=== PATIENT | female | born 1940 | race Caucasian/White ===

== ENCOUNTER 2021-11-29 18:24 | Emergency (ER) | payer MEDICARE, OTHER ==
[~2021-11-29] VITALS: Ht 167.6 cm; Wt 99.8 kg
[~2021-11-29 18:24] MED LIST: ADULT LOW DOSE81 MG PO; AMLODIPINE BESYL5 MG PO; CARDIZEM CD240 MG PO; CEFTRIAXONE2 G2 IV; CIPROFLOXACIN500 MG PO; CLEOCIN HCL300 MG PO; CLINDAMYCIN HC300 MG PO; DILTIAZEM 24HR240 M1 PO; ELIQUIS5 MG PO; LEVAQUIN750 MG PO; LEVOTHYROXINE100 MCG PO; LEVOTHYROXINE150 MCG PO; LOPRESSOR50 MG PO; LOSARTAN POTAS100 MG PO; LOVASTATIN20 MG PO; METOPROLOL SUC200 MG PO; METOPROLOL TART50 MG PO; NORCO 5-325 TA1 EACH PO; TOPROL XL100 MG PO; TOPROL XL50 MG PO; VANQUISH CAPLE1 EACH PO; VITAMIN B-122000 MC1 PO; VITAMIN D3400 UNI1 PO
[2021-11-29] MEDS ORDERED: WARFARIN SODIUM5 MG PO (18:58)
[2021-11-29] MEDS ORDERED: CEPHALEXIN500 MG PO (21:04)
== END 2021-11-29 21:39 | disposition home or self-care (01) ==
LOC: ED 18:24
DX: L03.115 Cellulitis of right lower limb (principal); I87.2 Venous insufficiency (chronic) (peripheral); I10 Essential (primary) hypertension
CPT/HCPCS: 36415; 80053; 85025; 85610; 96365; 99283-25; J0696

== ENCOUNTER 2021-12-19 13:43 | Inpatient (IN) | payer MEDICARE, OTHER ==
[~2021-12-19] VITALS: Ht 167.6 cm; Wt 102.8 kg
[~2021-12-19 13:43] MED LIST changes: +CEPHALEXIN500 MG PO; +WARFARIN SODIUM5 MG PO
--- OUTSIDE RECORDS SUMMARY | 2021-12-19 13:50 | XMS ---
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 EFan VISIT COUNT (12 MO.) 2 [facility] TOTAL 2 NOTE: Visits indicate total known visits. ED/C VISIT TRACKING (12 MO.) 12/19/2021 13:[address] [facility] [place] TYPE: Emergency COMPLAINT: - SWELLING/BODY PART 11/29/2021 18:[address] [facility] TYPE: Emergency COMPLAINT: - LT FOOT PAIN DIAGNOSES: - Cellulitis of right lower limb - Essential (primary) hypertension - Rash and other nonspecific skin eruption - Venous insufficiency (chronic) (peripheral) INPATIENT VISIT TRACKING (12 MO.) No inpatient visits to display in this time frame [email or web address]
[2021-12-19] MEDS ORDERED: CEPHALEXIN500 M1 PO (14:27)
[2021-12-20] MEDS ORDERED: WARFARIN SODIUM1 MG PO (07:39)
[2021-12-20] MEDS ORDERED: FUROSEMIDE20 MG PO (07:41)
[2021-12-20] MEDS ORDERED: POTASSIUM CHLO10 ME1 PO (07:41)
[2021-12-20] MEDS ORDERED: LEVOTHYROXINE137 MCG PO (07:42)
[2021-12-20] MEDS ORDERED: ATORVASTATIN CA20 MG PO (07:42)
[2021-12-22] MEDS ORDERED: METOPROLOL SUC200 MG PO (14:09)
[2021-12-22] MEDS ORDERED: DILTIAZEM 24HR240 M1 PO (14:10)
[2021-12-22] MEDS ORDERED: CLINDAMYCIN HC300 MG PO (14:11)
== END 2021-12-22 15:25 | disposition home or self-care (01) | DRG 603 ==
LOC: ED 13:43 → MS 16:14
PROVIDERS: ADMIT Internal Medicine; ATTEND Internal Medicine
DX: L03.116 Cellulitis of left lower limb (principal); I48.20 Chronic atrial fibrillation, unspecified; E78.00 Pure hypercholesterolemia, unspecified; E03.9 Hypothyroidism, unspecified; T78.40XA Allergy, unspecified, initial encounter; T36.1X5A Adverse effect of cephalosporins and other beta-lactam antibiotics, initial encounter; I10 Essential (primary) hypertension; Z98.890 Other specified postprocedural states; Z79.899 Other long term (current) drug therapy; Z79.2 Long term (current) use of antibiotics; Z79.01 Long term (current) use of anticoagulants; Z20.822 Contact with and (suspected) exposure to COVID-19
CPT/HCPCS: 36415; 80048; 80076; 85025; 85610; 87502; 96374; 96375; 97162; 97165; 99284-25; A9270; J0690; J3370; J7060; J7121; U0003

== ENCOUNTER 2021-12-28 10:36 | Emergency (ER) | payer OTHER, MEDICARE ==
[~2021-12-28] VITALS: Ht 167.6 cm; Wt 105.0 kg
[~2021-12-28 10:36] MED LIST changes: +ATORVASTATIN CA20 MG PO; +CEPHALEXIN500 M1 PO; +FUROSEMIDE20 MG PO; +LEVOTHYROXINE137 MCG PO; +POTASSIUM CHLO10 ME1 PO; +WARFARIN SODIUM1 MG PO
--- OUTSIDE RECORDS SUMMARY | 2021-12-28 10:40 | XMS ---
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 Joesph VISIT COUNT (12 MO.) 4 [facility] TOTAL 4 NOTE: Visits indicate total known visits. ED/C VISIT TRACKING (12 MO.) 12/28/2021 10:36 [facility] TYPE: Emergency COMPLAINT: - FALL 12/25/2021 02:59 [facility] TYPE: Emergency COMPLAINT: - FALL DIAGNOSES: - Essential (primary) hypertension - Allergy status to other antibiotic agents - Other usp (current) drug therapy - Unspecified fall, initial encounter - residential (current) use of anticoagulants - Laceration without foreign body of other part of head, initial encounter 12/19/2021 13:43 [facility] [place] TYPE: Emergency COMPLAINT: - SWELLING/BODY PART 11/29/2021 18:25 [facility] TYPE: Emergency COMPLAINT: - LT FOOT PAIN DIAGNOSES: - Cellulitis of right lower limb - Essential (primary) hypertension - Rash and other nonspecific skin eruption - Venous insufficiency (chronic) (peripheral) INPATIENT VISIT TRACKING (12 MO.) 12/19/2021 16:14 [facility] [place] TYPE: Medical Surgical COMPLAINT: - ACUTE LEFT LOWER EXTREMITY SEVERE CELLULITIS DIAGNOSES: - Adverse effect of cephalosporins and other beta-lactam antibiotics, initial encounter - residential (current) use of antibiotics - Elevated white blood cell count, unspecified - Allergy, unspecified, initial encounter - Contact with and (suspected) exposure to COVID-19 - Chronic atrial fibrillation, unspecified - Other technical engineer (current) drug therapy - Chronic atrial fibrillation, unspecified - Other specified postprocedural states - Hypothyroidism, unspecified - Adverse effect of cephalosporins and other beta-lactam antibiotics, initial encounter - residential (current) use of anticoagulants - Hypothyroidism, unspecified - Pure hypercholesterolemia, unspecified - Other specified postprocedural states - Contact with and (suspected) exposure to COVID-19 - communications department head (current) use of anticoagulants - Pure hypercholesterolemia, unspecified - Essential (primary) hypertension - Cellulitis of left lower limb - communications department head (current) use of antibiotics - Other technical engineer (current) drug therapy - Essential (primary) hypertension [email or web address]
--- NOTE | 2021-12-28 13:12 | EKG ---
[facility] [address] [facility] [facility] [place] [address] Signed Atrial fibrillation Abnormal ECG When compared with ECG of 28-MAR-2016 10:56, Vent. rate has decreased BY 62 BPM Nonspecific T wave abnormality no longer evident in Inferior leads Confirmed by AILYN SHAIKH MD ([id number]) on 12/28/2021 1:11:55 PM Electronically Signed By: AILYN SHAIKH MD 12/28/21 1312 PATIENT NAME: DAREK WITT Electrocardiogram DATE OF : 36 PHYSICIAN: AILYN SHAIKH MD REPORT #: [id number] REPORT IS CONFIDENTIAL AND NOT TO BE RELEASED WITHOUT AUTHORIZATION
== END 2021-12-28 14:58 | disposition home or self-care (01) ==
LOC: ED 10:36
DX: S00.83XA Contusion of other part of head, initial encounter (principal); W19.XXXA Unspecified fall, initial encounter; Z88.8 Allergy status to other drugs, medicaments and biological substances; Z79.01 Long term (current) use of anticoagulants
CPT/HCPCS: 36415; 70450; 70486; 72125; 73560; 80048; 83605; 85025; 85610; 87040; 93005; 93010; 99284-25

== ENCOUNTER 2022-01-25 15:29 | Inpatient (IN) | payer MEDICARE, OTHER ==
[~2022-01-25] VITALS: Ht 167.6 cm; Wt 88.0 kg
--- OUTSIDE RECORDS SUMMARY | 2022-01-25 15:36 | XMS ---
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 - 2 Visits in 30 Days CARE PROVIDERS Wanda GarrisonP-C Nurse Practitioner: Family Current PHONE: [phone] Rolo has no Care Guidelines for this patient. Joesph VISIT COUNT (12 MO.) [address] [place] [address] TOTAL 5 NOTE: Visits indicate total known visits. ED/C VISIT TRACKING (12 MO.) 01/25/2022 15:29 [facility] TYPE: Emergency COMPLAINT: - MULTIPLE COMPLAINTS 12/28/2021 10:36 [facility] TYPE: Emergency COMPLAINT: - FALL DIAGNOSES: - Contusion of other part of head, initial encounter - Allergy status to other drugs, medicaments and biological substances - Unspecified atrial fibrillation - Unspecified fall, initial encounter - skilled nursing (current) use of anticoagulants 12/25/2021 02:59 [facility] [place] TYPE: Emergency COMPLAINT: - FALL DIAGNOSES: - Other exterminator helper (current) drug therapy - Essential (primary) hypertension - Laceration without foreign body of other part of head, initial encounter - Unspecified fall, initial encounter - Allergy status to other antibiotic agents - parts counterman (current) use of anticoagulants 12/19/2021 13:43 [facility] TYPE: Emergency COMPLAINT: - SWELLING/BODY PART 11/29/2021 18:25 [facility] TYPE: Emergency COMPLAINT: - LT FOOT PAIN DIAGNOSES: - Rash and other nonspecific skin eruption - Cellulitis of right lower limb - Venous insufficiency (chronic) (peripheral) - Essential (primary) hypertension INPATIENT VISIT TRACKING (12 MO.) 12/19/2021 16:14 [facility] TYPE: Medical Surgical COMPLAINT: - ACUTE LEFT LOWER EXTREMITY SEVERE CELLULITIS DIAGNOSES: - Chronic atrial fibrillation, unspecified - Other nursing home (current) drug therapy - Other specified postprocedural states - Chronic atrial fibrillation, unspecified - Hypothyroidism, unspecified - skilled nursing (current) use of anticoagulants - Hypothyroidism, unspecified - Essential (primary) hypertension - Elevated white blood cell count, unspecified - parts counterman (current) use of anticoagulants - Contact with and (suspected) exposure to COVID-19 - parts counterman (current) use of antibiotics - Pure hypercholesterolemia, unspecified - Other nursing home (current) drug therapy - Essential (primary) hypertension - Contact with and (suspected) exposure to COVID-19 - Other specified postprocedural states - Pure hypercholesterolemia, unspecified - skilled nursing (current) use of antibiotics - Adverse effect of cephalosporins and other beta-lactam antibiotics, initial encounter - Allergy, unspecified, initial encounter - Cellulitis of left lower limb - Adverse effect of cephalosporins and other beta-lactam antibiotics, initial encounter [email or web address]
--- NOTE | 2022-01-26 00:05 | NUR ---
PT ARRIVED TO THE CCU AT 2245. PT ALERT AND ORIENTED X4. VANCOMYCIN INFUSING, DILT DRIP AT 15MG/HR. PT TRANSFERRED TO THE BED WITH ASSISTANCE FROM RN GARETT AND NICOLE BOSTON. VITALS AND ASSESSMENT THEN COMPLETED (SEE CHART). PT ALERT, ORIENTED X4, HEART RYTHM IRREGULAR, LUNGS CLEAR, PT ON ROOM AIR AND DENIES SHORTNESS OF BREATH. ABDOMEN SOFT, BOWEL TONES HYPOACTIVE. NO PAIN REPORTED WHEN ABDOMEN WAS PALPATED. RADIAL PULSES STRONG, PEDAL PULSES +1. PITTING/WEEPING EDEMA NOTED IN LOWER EXTREMTIES BILATERALLY. REDNESS PRESENT IN LEFT LOWER ANKLE/FOOT, WOUND PRESENT ON DORSAL SIDE OF LEFT FOOT THAT IS OPEN TO AIR. LEGS ELEVATED WITH PILLOWS. REDNESS/EXORCIATIONS NOTED IN DENNIS AREA. CONTRERAS IN PLACE AND DRAINING YELLOW URINE. IV SITES C/D/I AND PATENT. AFTER ASSESSMENT VANCO WAS COMPLETED, IV ZOSYN STARTED AND NOW INFUSING ORDERED. DILT DRIP TITRATED UP TO 17.5 AND THEM 20MG/HR PER PARAMETERS. PT RESTING IN BED AND DENIES HAVING ANY PAIN. PT DOES REPORT ITCHING ON BACK AND THIGHS, NO REDNESS NOTED. PT STATES SHE HAS NOT BATHED FOR DAYS DUE TO A RECENT FALL THAT HAS SCARED HER FROM USING THE SHOWER. PT REPORTS NO FURTHER NEEDS WHEN ASKED AT THIS TIME, ICE WATER PROVIDED. CALL LIGHT IN REACH, BED IN LOWEST POSITION, WILL CONTINUE PLAN OF CARE.
--- NOTE | 2022-01-26 00:25 | NUR ---
DR. WHITEHEAD CALLED AND NOTIFIED OF PT'S VITALS (SEE CHART), DILT DRIP RATE OF 20MG/HR, AND PT'S REPORTED ITCHING. NEW ORDERS TO BE PLACED FOR LOPRESSOR AND BENADRYL, WILL CONTINUE PLAN OF CARE.
--- NOTE | 2022-01-26 01:11 | NUR ---
PT RESTING IN BED AWAKE AND ALERT AT THIS TIME AND STILL REPORTS ITCHING, PT DENIES HAVING ANY PAIN. PRN IV BENADRYL ADMINISTERED FOR PT'S ITCHING (SEE MAR). SCHEDULED LOPRESSOR ADMINISTERED (SEE MAR). DILTIAZEM DRIP THEN DECREASED FROM 20 TO 15MG/HR HEART RATE WAS IN THE 90'S AFTER ADMINISTRATION OF IV LOPRESSOR. PT REMAINS RESTING IN BED, AND REPORTS NO FURTHER NEEDS WHEN ASKED. CALL LIGHT IN REACH, BED IN LOWEST POSITION, WILL CONTINUE PLAN OF CARE.
--- NOTE | 2022-01-26 03:01 | NUR ---
PT ON THE BEDSIDE NICOLE MARRERO IN ROOM WITH PT. PT ABLE TO HAVE A BM, PERICARE DONE FOR PT. PT WEAK BUT WAS ABLE TO SLOWLY PIVOT TO THE BED USING A WALKER AND SUPPORT FROM THIS RN. PT REPOSITIONED UP ON THE BED WITH HELP FROM NICOLE BAJWA. PT REMAINS ON THE DILT DRIP AT 15MG/HR AND IV ZOSYN. PT'S WOUND/ULCER ON LEFT HEEL NOTED TO BE BLEEDING LIGHTLY. LOWER EXTREMITIES WASHED WITH SOAP AND WATER AT THIS TIME AND THEN DRIED. WOUND CLEANSER APPLIED TO [facility] HEAL, DABBED WITH GAUZE, AND THEN AN ALLEVYN WAS PLACED OVER THE WOUND/ULCER. PT NOW RESTING IN BED IN NO APAPRENT DISTRESS. PT REPORTS NO NEEDS AT THIS TIME WHEN ASKED, WARM BLANKETS PROVIDED. DILT DRIP REMAINS AT 15MG/HR HR NOTED TO BE 90-100'S. CALL LIGHT IN REACH, BED IN LOWEST POSITION, WILL CONTINUE PLAN OF CARE.
--- NOTE | 2022-01-26 04:55 | NUR ---
PT NOTED TO BE TALKING OUT LOUD IN ROOM. PT AWAKE AND ALERT AT THIS TIME AND INFORMED THIS RN THAT SHE FELT IF SHE NEEDED TO HAVE A BM. PT ASSISTED UP OUT OF THE BED, PT SLOWLY PIVOTED TO THE BEDSIDE COMMODE 1 PERSON ASSIST AND WITH A WALKER. PT DID NOT HAVE A BM AND WAS ASSISTED BACK TO THE BED. DESK INTERVIEWER SIMONE NICESISTED IN REPOSITIONING THE PT UP ON THE BED. DILT REMAINS AT 15MG/HR, IV ABX INFUSING. HR REMAINS 90-100'S. VITALS TAKEN AT THIS TIME AND ASSESSMENT COMPLETED (SEE CHART). PT THEN PROVIDED WITH WARM BLANKETS. PT REPORTS NO FURTHER NEEDS AND IS RESTING IN BED. CALL LIGHT IN REACH, BED IN LOWEST POSITION, WILL CONTINUE PLAN OF CARE.
--- NOTE | 2022-01-26 06:39 | NUR ---
PT RESTING IN BED WITH HER EYES CLOSED AT THIS TIME. DILTIAZEM DRIP REMAINS AT 15MG/HR, HR 90'S. SCHEDULED ZOSYN STARTED AND INFUSING AT ORDERED RATE. PT IN NO APPARENT DISTRESS AND REMAINS RESTING IN BED. CALL LIGHT IN REACH, BED IN LOWEST POSITION, WILL CONTINUE PLAN OF CARE.
--- NOTE | 2022-01-26 06:44 | NUR ---
DILTIAZEM DRIP TITRATED DOWN TO 10MG/HR, HR NOTED TO BE 80-90 BPM AT THIS TIME. PT REMAINS RESTING IN BED AT THIS TIME. NO NEEDS ASSESSED, WILL CONTINUE PLAN OF CARE.
--- NOTE | 2022-01-26 07:30 | NUR ---
REPORT RECEIVED FROM LANDON RIVERA. PT RESTING IN BED, SLEEPING, HR 90'S, RR 16 EVEN AND UNLABORED. CARDIZEM GTT HAS JUST BEEN TITRATED TO 10MG/HR AND IS INFUSING.
--- NOTE | 2022-01-26 09:00 | NUR ---
PATIENT UP TO BSC WITH FWW AND 1PA. YELLOW SOCKS ON FOR SAFETY, LEGS ARE VERY HEAVY AND WEEPING. PATIENT TOLERATED AMBULATING WELL WITH VERY SMALL STEPS. LINEN CHANGED, BEDBATH AND CONTRERAS CARE PROVIDED. CALL LIGHT IN EASY REACH, PATIENT BACK IN BED, LEGS ELEVATED
--- NOTE | 2022-01-26 09:02 | NUR ---
PT HAS JUST FINISHED BREAKFAST, ATE JUST A FEW BITES. IN TO SEE PT AND DISCUSS PLAN OF CARE.
--- NOTE | 2022-01-26 09:45 | NUR ---
UPDATE GIVEN TO DAUGHTER MARCELLUS ON PHONE IN PTS ROOM.
--- NOTE | 2022-01-26 10:14 | NUR ---
NEW IV STARTED ON RIGHT FOREARM AC SITE KEPT GETTING OCCLUDED. PT ONTO BEDPAN.
--- NOTE | 2022-01-26 11:51 | NUR ---
PT SITTING UP IN BED EATING LUNCH. CARDIZEM DRIP REMAINS AT 10MG/HR. HR 80'S, AFIB. LEGS AND FEET REPOSITIONED.
--- NOTE | 2022-01-26 14:00 | NUR ---
PT HAS FINISHED WITH HER LUNCH, ATE VERY LITTLE. IN TO SIT WITH PT. PT UP TO SIT ON COMMODE, DID NOT HAVE A BOWEL MOVMENT, THEN TO CHAIR TO SIT UP FOR A WHILE WITH LLE ELEVATED.
--- NOTE | 2022-01-26 14:21 | NUR ---
MED REC COMPLETE
--- NOTE | 2022-01-26 16:30 | NUR ---
PT RESTING, AWAKENS BRIEFLY. REMAINS IN ROOM. HR 80-90'S, CARDIZEM DRIP STILL AT 10MG/HR.
--- NOTE | 2022-01-26 18:46 | NUR ---
PT REMAINS UP IN CHAIR SLEEPING, HR 80'S, CARDIZEM DRIP STILL AT 10MG/HR.
--- NOTE | 2022-01-26 19:31 | NUR ---
REPORT RECEIVED FROM MAIRA RN, WILL CONTINUE PLAN OF CARE.
--- NOTE | 2022-01-26 19:50 | NUR ---
PT RESTING IN THE BEDSIDE RECLINER AT THIS TIME IN NO APPARENT DISTRESS. DILTIAZEM DRIP ON AT 10MG/HR. VITALS TAKEN (SEE CHART). DILTIAZEM DRIP THEN DECREASED TO 7.5 MG/HR. ASSESSMENT THEN COMPLETED (SEE CHART). PT ALERT AND ORIENTED X3, DENIES SHORTNESS OF BREATH OR CHEST PAIN WHEN ASKED. HR IRREGULAR 80-100 BPM. LUNGS CLEAR, PT ON ROOM AIR, ABDOMEN SOFT, ACTIVE BOWEL TONES PRESENT. LOWER EXTREMITIY EDEMA AND REDNESS STILL PRESENT. RADIAL PULSES STRONG, PEDAL PULSES +1. PT DENIES NUMBNESS AND TINGLING TO EXTREMITIES. PT DILTIAZEM DRIP DECREASED TO 5MG/HR AFTER ASSESSMENT HR MAINTAINED BETWEEN 80-100 BPM. PT REPORTS NO FURTHER NEEDS AT THIS TIME WHEN ASKED. PT REMAINS AT THE BEDSIDE RECLINER PER HER REQUEST. CALL LIGHT IN REACH, WILL CONTINUE PLAN OF CARE.
--- NOTE | 2022-01-26 20:16 | NUR ---
PT REMAINS AWAKE RESTING IN THE BEDSIDE RECLINER. DILTIAZEM TITRATED TO 5MG/HR AT THIS TIME (SEE VITALS). SCHEDULED IV LOPRESSOR ADMINISTERED (SEE MAR). PT NOW ON THE PHONE TALKING TO FAMILY AND REPORTS NO FURTHER NEEDS, WILL CONTINUE PLAN OF CARE.
--- NOTE | 2022-01-26 20:35 | NUR ---
DILTIAZEM DRIP DECREASED TO 2.5 MG/HR AT THIS TIME HR IS IN THE 70-90'S (SEE CHART). PT REPORTS NO FURTHER NEEDS AND REMAINS RESTING IN BED BEDSIDE RECLINER AWAKE AND ALERT, WILL CONTINUE PLAN OF CARE.
--- NOTE | 2022-01-26 20:45 | NUR ---
DR. WHITEHEAD NOTIFIED OF PT'S VITALS AND DRIP RATE AND PT'S HOME MEDICATION SCHEDULE. NEW ORDERS GIVEN TO DC IV METOPROLOL AND DILTIAZEM DRIP AND ADMINISTER PO CARDIZEM CD 240MG AND TOPROL XL 200MG, ORDERS TO BE PLACED BY DR WHITEHEAD (SEE MAR). WILL CONTINUE PLAN OF CARE.
--- NOTE | 2022-01-26 21:15 | NUR ---
PT RESTING IN BEDSIDE RECLINER AWAKE AND ALERT. VITALS TAKEN, DILTIAZEM DRIP STOPPED AT THIS TIME AND SCHEDULED PO MEDICATIONS ADMINISTERED (SEE CHART AND EMAR). PT REMAINS AWAKE AND ALERT AND REPORTS NO FURTHER NEEDS WHEN ASKED. PT REMAINS ON THE BEDSIDE RECLINER WATCHING TV. CALL LIGHT IN REACH, BED IN LOWEST POSITION, WILL CONTINUE PLAN OF CARE.
--- NOTE | 2022-01-26 22:25 | NUR ---
PT RESTING IN RECLINER AWAKE AND ALERT. PT ASKED IF SHE WAS READY TO GO TO THE BED, PT STATED YES. PT ASSISTED IN MOVING TO THE BED. PT ABLE TO USE WALKER TO PIVOT TO THE BED. PT SUPPORTED WHILE STANDING. PT THEN REPOSITIONED UP IN BED WITH ASSISTNACE FROM OUTSIDE LABORER SIMONE. SCHEDULED IV ZOSYN THEN STARTED AND NOW INFUSING AT ORDERED RATE. LEGS ELEVATED WITH ON PILLOWS WELL. PT REPORTS NO FURTHER NEEDS WHEN ASKED AND IS NOW WATCHING TV. CALL LIGHT IN REACH, BED IN LOWEST POSITION, WILL CONTINUE PLAN OF CARE.
--- NOTE | 2022-01-26 23:30 | NUR ---
PT RESTING IN BED AWAKE AND ALERT. PT'S LEGS REPOSITIONED ON PILLOWS PER HER REQUEST. PT REPORTS 5/10 LEG/FEET PAIN BILATERALLY. PRN TYLENOL ADMINISTERED FOR PAIN (SEE MAR). PT ASSESSMENT THEN COMPLETED AND VITALS TAKEN (SEE CHART). PT REPORTS NO FURTHER NEEDS AFTERWARDS WHEN ASKED AND REMAINS RESTING IN BED. CALL LIGHT IN REACH, BED IN LOWEST POSITION, WILL CONTINUE PLAN OF CARE.
--- NOTE | 2022-01-27 00:02 | NUR ---
PT RESTING IN BED AT THIS TIME AWAKE AND ALERT WATCHING TV. PT REQUESTED TO HAVE LEGS REPOSITIONED AND LOTION PLACED ON THEM. LEGS DRIED, WOUND CLEANSER APPLIED TO ULCER ON L HEEL, NEW ALLEVYN PLACED AFTER IT WAS PAT DRIED WITH GAUZE. LOTION THEN APPLIED TO LOWER LEGS AND FEET. PT REPORTS NO FURTHER NEEDS AT THIS TIME AND REMAINS RESTING IN BED. CALL LIGHT IN REACH, WILL CONTINUE PLAN OF CARE.
--- NOTE | 2022-01-27 01:15 | NUR ---
PT RESTING IN BED. PT REPORTED DISCOMFORT TO HER LOWER LEGS/FEET. PT ASSISTED WITH REPOSITIONING LEGS, WARM BLANKET PROVIDED TO PT PER HER REQUEST. BP CUFF THEN PLACED ON LEFT ARM AT THIS TIME. PT REPORTS NO FURTHER NEEDS AT THIS TIME WHEN ASKED AND IS RESTING IN BED AWAKE AND ALERT. IV ZOSYN INFUSING ORDERED, WILL CONTINUE PLAN OF CARE. CALL LIGHT IN REACH.
--- NOTE | 2022-01-27 02:25 | NUR ---
PT RESTING IN BED AT THIS TIME AWAKE AND ALERT. SPO2 MONITOR PLACED BACK ON FINGER. PT REPORTS NO NEEDS AT THIS TIME WHEN ASKED. CALL LIGHT WITHIN REACH, WILL CONTINUE PLAN OF CARE.
--- NOTE | 2022-01-27 03:42 | NUR ---
PT IV ABX COMPLETED. PT SALINE LOCKED AT THIS TIME. PT REPOSITIONED UP IN BED WITH ASSISTANCE FROM RN GARETT. LEGS ELEVATED VIA BED. PT'S VITALS THEN TAKEN AND ASSESSMENT COMPLETED (SEE CHART). PT REPORTS NO NEEDS AT THIS TIME WHEN ASKED, PT REMAINS RESTING IN BED AWAKE AND ALERT WATCHING TV AT THIS TIME. WILL CONTINUE PLAN OF CARE. CALL LIGHT IN REACH, BED IN LOWEST POSITION.
--- NOTE | 2022-01-27 04:57 | NUR ---
PT NOTED TO BE MOANING OUT LOUD WHILE RESTING IN BED AWAKE AND ALERT. PT REPORTS 5/10 LEG PAIN AT THIS TIME. PRN TYLENOL ADMINISTERED FOR PT'S PAIN AT THIS TIME (SEE MAR). PT REPORTS NO FURTHER NEEDS AFTERWARDS. WATER PROVIDED TO PT. CALL LIGHT IN REACH, BED IN LOWEST POSITION, WILL CONTINUE PLAN OF CARE.
--- NOTE | 2022-01-27 05:41 | NUR ---
PT RESTING IN BED AWAKE AND ALERT AT THIS TIME. SCHEDULED ZOSYN STARTED AND NOW INFUSING ORDERED. PT'S LOWER EXTREMITIES REPOSITIONED AND REMAIN ELEVATED OVER A PILLOW. OUTPUT MEASURED FOR LAST TWO HOURS AND WAS 90ML. URINE CONCENTRATED IN COLOR. PT ENCOURAGED TO DRINK MORE WATER/FLUIDS. PT REPORTS NO FURTHER NEEDS AFTER REPOSITIONING HER LEGS AND REMAINS RESTING IN BED WATCHING TV. CALL LIGHT IN REACH, WILL CONTINUE PLAN OF CARE.
--- NOTE | 2022-01-27 06:33 | NUR ---
PT RESTING IN BED AT THIS TIME WITH HER EYES CLOSED. PT IN NO APPARENT DISTRESS, RESPIRATIONS EVEN AND UNLABORED. PT LEFT UNDISTURBED. CALL LIGHT WITHIN REACH, WILL CONTINUE PLAN OF CARE.
--- NOTE | 2022-01-27 08:15 | NUR ---
ASSESSMENT COMPLETE. DR. JADE AT BED TO DRAIN WOUND ON LEFT FOOT. WOUND CULTURE OBTAINED AND SENT TO LAB. VERBAL ORDER RECIEVED TO CHANGE DRESSING NEEDED FOR SATURATION. LEAVE PACKING IN PLACE, APPLY XEROFORM, APPLY 2X2, AND WRAP IN GUAZE. PT HR IRREGULAR. REMAINS IN AFIB HR SUSTAINED IN THE 80S WHILE RESTING. LUNG SOUNDS EVEN AND UNLABORED AND CLEAR IN ALL LOBES. CALL LIGHT WITHIN REACH.
--- NOTE | 2022-01-27 09:00 | NUR ---
RN PT ROUNDING. PT IN BED EATING BREAKFAST. VITALS AND I&O COMPLETE. ASSISTED TO USE TELEPHONE TO CALL . CALL LIGHT WITHIN REACH.
--- NOTE | 2022-01-27 10:00 | NUR ---
RN PT ROUNDING. VS AND I&O COMPLETE. PT UP THE CHAIR USING A FRONG WHEELED WALKER AND 2 PERSON ASSIST. LEGS ELEVATED WITH PILLOW. BED LINEN CHANGED. CALL LIGHT WITHIN REACH.
--- NOTE | 2022-01-27 11:00 | NUR ---
RN PT ROUNDING. PT ASLEEP AT THIS TIME
--- NOTE | 2022-01-27 12:00 | NUR ---
RN PT DEREK. PT IN RECLINER. WEST AT BEDSIDE. PT REFUSED LUNCH STATES "IM NOT HUNGRY".
--- NOTE | 2022-01-27 13:00 | NUR ---
RN PT ROUNDING. VS AND I&O COMPLETE. PT IN RECLINER WATCHING TV. GRANDDAUGHTER AT BEDSIDE. CALL LIGHT WITHIN REACH.
--- NOTE | 2022-01-27 14:45 | NUR ---
BROUGHT PT TO MED SURG. BELONGINGS PLACED IN NEW ROOM. REPORT GIVEN AT BEDSIDE WITH BETH RIVERA.
--- NOTE | 2022-01-27 14:52 | NUR ---
Received report on pt, oriented pt to new unit, no complaints at this time. A&O x4, no concerns/complaints.
--- NOTE | 2022-01-27 15:51 | EKG ---
[facility] [address] [facility] [place] [address] Signed Atrial fibrillation with rapid ventricular response Left axis deviation Left bundle branch block Abnormal ECG When compared with ECG of 28-DEC-2021 10:58, Vent. rate has increased BY 40 BPM Left bundle branch block is now present Confirmed by SHERRY LANCE MD ([id number]) on 01/27/2022 3:51:09 PM Electronically Signed By: SHERRY LANCE MD 01/27/22 1551 PATIENT NAME: DAREK WITT Electrocardiogram DATE OF : 36 PHYSICIAN: SHERRY LANCE MD REPORT #: [id number] REPORT IS CONFIDENTIAL AND NOT TO BE RELEASED WITHOUT AUTHORIZATION
--- NOTE | 2022-01-27 15:52 | EKG ---
[facility] [address] [facility] [place] [address] Signed Atrial fibrillation with rapid ventricular response ST \T\ T wave abnormality, consider lateral ischemia Abnormal ECG When compared with ECG of 25-JAN-2022 16:04, (Unconfirmed) Left bundle branch block is no longer present Confirmed by SHERRY LANCE MD ([id number]) on 01/27/2022 3:51:54 PM Electronically Signed By: SHERRY LANCE MD 01/27/22 1552 PATIENT NAME: DAREK WITT Electrocardiogram DATE OF : 36 PHYSICIAN: SHERRY LANCE MD REPORT #: [id number] REPORT IS CONFIDENTIAL AND NOT TO BE RELEASED WITHOUT AUTHORIZATION
--- NOTE | 2022-01-27 16:24 | NUR ---
Pt tolerating new environment well. Pt has seeping wounds on bottom of calves, leaves reddened areas on pillow cases. Using pillows in lieu of chucks pads to decrease amount of chafing to calves. Pt left foot has dressing in place, dressing orders found in nursing interventions. Pt has family at bedside, no complaints at this time.
--- NOTE | 2022-01-27 18:32 | NUR ---
Pt calm and cooperative, able to make needs known. Pt A&O x3, sometimes forgets the time. Pt VSS. Pt pleasant, remains free from falls and injuries, frequent rounding completed.
--- NOTE | 2022-01-27 19:27 | NUR ---
REPORT RECEIVED FROM DAY SHIFT RN. PT SITTING IN RECLINER WITH EYES CLOSED. RESPIRATIONS EVEN. TELE #9. HR 80'S. AFIB. CALL LIGHT IN REACH. WHITE BOARD UPDATED.
--- NOTE | 2022-01-27 20:30 | NUR ---
CALL LIGHT ANSWERED. PT READY FOR BED. 2PA WITH FWW BACK TO BED. GAIT STEADY. VS AND I&O COMPLETE. EVENING ASSESSMENT COMPLETE. SCHEDULED MEDS ADMIN PER EMAR. PRN FOR PAIN ADMIN PER EMAR FOR BLE PAIN. BLE ELEVATED ON PILLOW. LEFT FOOT DRESSING INTACT WITH SMALL AMOUNT SHADOWING. BLE WITH SCABS WEEPING SEROSANG DRAINAGE. CONTRERAS PATENT WITH PINK TINGED URINE. TELE #[address] A-FIB, RATE 80-90'S. PT DENIES QUESTIONS OR CONCERNS. CALL LIGHT IN REACH.
--- NOTE | 2022-01-27 23:30 | NUR ---
IV PUMP ALARMING. ISSUE RESOLVED. PT RESTING WITH EYES CLOSED. RESPIRATIONS EVEN. CALL LIGHT IN REACH.
--- NOTE | 2022-01-28 00:53 | NUR ---
IV ABX INFUSING WNL. PT RESTING WITH EYES CLOSED, AWAKENS EASILY. ASSISTED TO REPOSITION. CONTRERAS PATENT WITH YELLOW URINE. NO NEEDS AT THIS TIME. CALL LIGHT IN REACH.
--- NOTE | 2022-01-28 02:48 | NUR ---
PT RESTING IN BED WITH EYES CLOSED. RESPIRATIONS EVEN. IV ABX INFUSING WNL. TELE #[address] AFIB WITH FREQUENT PAUSES. HR 50'S.
--- NOTE | 2022-01-28 05:50 | NUR ---
CRITICAL INR LAB VALUE RECEIVED FROM LAB. NOT NOTIFIED DUE TO TREND.
--- NOTE | 2022-01-28 05:50 | NUR ---
PT AWAKE AFTER LAB DRAW. CONFUSED ON LOCATION AND TIME. ORIENTATION PROVIDED. BED ALARM FOR SAFETY. VS AND I&O COMPLETE. 2PA TO REPOSITION IN BED. BLE WEEPING SEROSANG DRAINAGE. CHUCKS CHANGED. BLE ELEVATED ON PILLOW. DRESSING TO LEFT FOOT INTACT WITH OLD SHADOWING NOTED. SIPS OF WATER PROVIDED. PT DENIES FURTHER NEEDS. CALL LIGHT IN REACH.
--- NOTE | 2022-01-28 08:15 | NUR ---
Assessment completed. Denies pain at this time. AM medications administered. Denies other needs at this time. Call light in reach, bed rails up X2.
--- NOTE | 2022-01-28 17:31 | NUR ---
No urine output since catheter removal. Bladder scanned. 84 mL noted, Dr. Simms notified, no new orders at this time.
--- NOTE | 2022-01-28 18:22 | NUR ---
Continues on IV antibiotics. Silva DC'd today with no urine output since DC, 84 Ml by bladderscan, orders to continue monitoring. Dr. Mauricio in to see patient and change left food dressing this AM, foot x-rays completed with no signs of osteomyelitis noted.
--- NOTE | 2022-01-28 19:29 | NUR ---
REPORT RECEIVED FROM DAY SHIFT RN. PT LYING IN BED RESTING WITH EYES CLOSED. RESPIRATIONS EVEN. IV ABX INFUSING WNL. CALL LIGHT IN REACH. WHITE BOARD UPDATED.
--- NOTE | 2022-01-28 20:36 | NUR ---
PT ALERT AND ORIENTED, COOP WITH VITALS AND REPOSITIONING. NO UO, PUREWICK IN PLACE, DENIES FEELING OF BLADDER DISTENTION. HELPED WITH REPOSITIONING
--- NOTE | 2022-01-28 22:13 | NUR ---
PUREWICK IN PLACE, NO DRAINAGE. BLADDER SCANNER USED, SHOWING 473CC APPROX URINE IN BLADDER, PT STATED "YES i FEEL LIKE i HAVE TO GO, i JUST DO NOT KNOW WHAT TO DO", INFORMED ON ATTENDS THAT ARE IN PLACE, PUREWICK USE. ROSALINDA CUEVAS RN NOTIFIED
--- NOTE | 2022-01-28 22:24 | NUR ---
EVENING ASSESSMENT COMPLETE. PT ALERT AND ORIENTED. REPORTS BLE PAIN 5/10. PRN FOR PAIN ADMIN PER EMAR. DRESSING TO LEFT FOOT CDI. BILAT LOWER EXTREMITIES WEEPING SEROSANG DRAINAGE. CHUCKS CHANGED. LEGS ELEVATED ON PILLOW. PT DUE TO VOID. PUREWICK IN PLACE. PT DENIES QUESTIONS OR CONCERNS AT THIS TIME. CALL LIGHT IN REACH.
--- NOTE | 2022-01-28 23:00 | NUR ---
Went to check on pt. purewick working, draining dark yellow urine. pt stated "I went", 200cc noted in container. Primary RN notified
--- NOTE | 2022-01-29 00:44 | NUR ---
PT AWAKE IN BED WATCHING TV. IV ABX INFUSING PER ORDER. PT DENIES NEEDS. CALL LIGHT IN REACH.
--- NOTE | 2022-01-29 01:21 | NUR ---
CALL LIGHT ANSWERED. PT UP TO BSC WITH 2PA AND FWW TO VOID AND HAVE BM. STAFF ASSIST WITH DENNIS CARE. LINENS CHANGED. PT BACK TO BED, CHRIS WELL. INCREASED BLOODY DRAINAGE NOTED ON BLE AFTER ACTIVITY. LEGS ELEVATED ON PILLOWS IN BED. NO FURTHER NEEDS. CALL LIGHT IN REACH.
--- NOTE | 2022-01-29 01:22 | NUR ---
pt used call light, up to BSC with 2 PA, voided large amount of urine mixed with small clumps of bm. skin care, back to bed, tolerated well. 2PA/FWW
--- NOTE | 2022-01-29 02:14 | NUR ---
PT REPORTS LLE PAIN. ASSISTED TO REPOSITION. PT REPORTS SOME RELIEF. DENIES OTHER NEEDS AT THIS TIME.
--- NOTE | 2022-01-29 04:05 | NUR ---
PT AWAKE IN BED. REPORTS LLE PAIN 5/10. PRN FOR PAIN ADMIN PER EMAR. ASSESSMENT COMPLETE. NO FURTHER NEEDS.
--- NOTE | 2022-01-29 06:46 | NUR ---
DR JADE AT BEDSIDE TO IRRIGATE AND RE-DRESS WOUND ON L FOOT AND CALF. WOUND ON R CALF ALSO DRESSED WITH XEROFORM AND KOBAN. PT TOLERATING WELL. PICTURES OF WOUND ON L FOOT TAKEN AND PRINTED TO BE PLACED IN CHART.
--- NOTE | 2022-01-29 09:49 | NUR ---
PATIENT IN CHAIR WATCHING TV AT THIS TIME. VITALS AND I&O'S CHARTED. CALL LIGHT IN REACH. NO FURTHER NEEDS AT THIS TIME.
--- NOTE | 2022-01-29 14:45 | NUR ---
Dr. Simms notified of patient blood pressures, no new orders.
--- NOTE | 2022-01-29 17:52 | NUR ---
Patient up in bed for breakfast ambulated with walker and 2 person assist. Wound cultures resolved, antibiotics changed per doctors orders see eMAR. Patient ambulated to commode with 2 person assist and walker.
--- NOTE | 2022-01-29 19:29 | NUR ---
REPORT RECEIVED FROM DAY SHIFT RN. PT LYING IN BED RESTING WITH EYES CLOSED. RESPIRATIONS EVEN. CALL LIGHT IN REACH. WHITE BOARD UPDATED.
--- NOTE | 2022-01-29 22:16 | NUR ---
EVENING ASSESSMENT COMPLETE. SCHEDULED MEDS ADMIN PER EMAR. PT BP LOW. DR. LANCE AWARE AND CARDIAC MEDS GIVEN PER ORDER. PRN FOR PAIN ADMIN FOR 5/10 BLE PAIN. DRESSING TO LEFT FOOT/CALF AND RIGHT CALF CDI. PT UP TO BSC WITH 1PA AND FWW TO VOID. GAIT UNSTEADY AT TIMES. PT REQUIRES FREQUENT QUEING. STAFF ASSIST WITH DENNIS CARE. BACK TO BED, CHRIS WELL. PO INTAKE ENCOURAGED. PT SITTING UP DRINKING WATER. DENIES FURTHER NEEDS. CALL LIGHT IN REACH.
--- NOTE | 2022-01-30 00:57 | NUR ---
PT RESTING IN BED WITH EYES CLOSED. RESPIRATIONS EVEN. CALL LIGHT IN REACH.
--- NOTE | 2022-01-30 02:24 | NUR ---
PT RESTING IN BED WITH EYES CLOSED. RESPIRATIONS EVEN. SpO2 97% ON RA. HR 60'S. CALL LIGHT IN REACH.
--- NOTE | 2022-01-30 04:22 | NUR ---
PT RESTING IN BED WITH EYES CLOSED. RESPIRATIONS EVEN. CALL LIGHT IN REACH.
--- NOTE | 2022-01-30 06:05 | NUR ---
VS AND I&O COMPLETE. PT UP TO BSC WITH FWW AND 2PA TO VOID. STAFF ASSIST WITH DENNIS CARE. BACK TO BED, CHRIS WELL. DRESSING TO BLE INTACT. LEFT FOOT WITH SCANT AMOUTN RED DRAINAGE. PT REPORTS INCREASED PAIN WITH ACTIVITY. PRN FOR PAIN ADMIN PER EMAR. NO FURTHER NEEDS AT THIS TIME. CALL LIGHT IN REACH.
--- NOTE | 2022-01-30 07:07 | NUR ---
DR. JADE IN FOR DRESSING CHANGE ON BILAT LOWER EXT. PT CHRIS WELL. DISCUSSED PLAN OF CARE. PT RECEPTIVE. DENIES QUESTIONS AT THIS TIME. NO FURTHER NEEDS.
--- NOTE | 2022-01-30 07:15 | NUR ---
Report received from Thalia RIVERA. Pt resting in bed with eyes closed, even and unlabored respirations, no needs identified at this time. Call light in reach, will continue plan of care.
--- NOTE | 2022-01-30 09:00 | NUR ---
Scheduled medications administered and assessment complete. IV ABX infusing WNL. Pt A+O, updated on plan of care and pt has no questions at this time. Bilateral leg dressings C/D/I with no drainage noted. CMS intact. HRR with no arrhythmia noted.
--- NOTE | 2022-01-30 10:00 | NUR ---
Attempted to see pt, she is working with therapy. Will return later.
--- NOTE | 2022-01-30 10:45 | NUR ---
Pt IV ABX complete. Pt saline locked. at bedside. Pt has no questions or needs at this time. Call light in reach.
--- NOTE | 2022-01-30 13:10 | NUR ---
Pt sitting up in bed. On room air, states no pain or needs at this time. Call light in reach.
--- NOTE | 2022-01-30 14:05 | NUR ---
Physical therapy in room to see patient at this time
--- NOTE | 2022-01-30 15:07 | NUR ---
PT REQUESTING TO USE COMMODE. ASSISTED PT TO COMMODE WITH WALKER AND BACK TO CHAIR WITH WALKER. PT SITTING IN CHAIR ON PHONE. CALL LIGHT WITHIN REACH.
--- NOTE | 2022-01-30 16:00 | NUR ---
Spoke with pt and she states she lives with spouse. He is home alone and attempting to pay bills and not doing well. Pt states she has become less functional and not been able to care for herself. Per PT and they feel she should go to a SNF for rehab. Pt states she would do so, but I need to call her spouse and discuss with him. She uses a walker and a cane. Lives in a house with 1 step. We discussed SNFS in our area and she would go to [facility] or [facility]. Pt states she was not aware of how bad her wound had become on her foot. We discussed she would also have wound care at the SNF as well as PT and OT. She remains in agreement, if her spouse agrees.
--- NOTE | 2022-01-30 16:11 | NUR ---
Rounded on patient, sitting up in chair talking on the phone. Pt has no apparent needs at this time, call light in reach.
--- NOTE | 2022-01-30 16:30 | NUR ---
Claudy Moore at [facility]. They have female beds open. I will fax pts chart. Called and spoke with pts spouse Andres. Updated to my conversation with his and recommendations by DR and therapy. He states he is alone and trying to pay pills and not doing well. He states he doesn't think a snf would work for them. I let him know the Dr. and the PT are recommending a SNF. He states he will visit with pt tomorrow and let me know.
--- NOTE | 2022-01-30 17:25 | NUR ---
Dr Simms updated.
--- NOTE | 2022-01-30 19:26 | NUR ---
REPORT RECEIVED FROM DAY SHIFT RN. PT LYING IN BED ALERT AND ORIENTED. DENIES NEEDS. WHITE BOARD UPDATED. CALL LIGHT IN REACH.
--- NOTE | 2022-01-30 22:14 | NUR ---
THIS MAINFRAME DEVELOPER AND TEAR DOWN MATCHER NADIA HELPED PATIENT GOT UP TO BEDSIDE COMMODE. PATIENT VOIDED 300ML. PATIENT IS BACK IN BED. CALL LIGHT AND SIDE TABLE WITHIN REACH.
--- NOTE | 2022-01-30 22:30 | NUR ---
EVENING ASSESSMENT COMPLETE. SCHEDULED MEDS ADMIN PER EMAR. PT REPORTS LLE PAIN 09/26. PRN FOR PAIN ADMIN PER EMAR BY PAPER ROLL MACHINE OPERATOR. DRESSINGS TO BLE INTACT WITH SCANT AMOUTN BLOODY DRAINAGE FROM LEFT UPPER CALF. LEGS ELEVATED IN BED. PT DENIES FURTHER NEEDS. CALL LIGHT IN REACH.
--- NOTE | 2022-01-31 01:04 | NUR ---
PT AWAKE IN BED WATCHING TV. DENIES NEEDS AT THIS TIME. CALL LIGHT IN REACH.
--- NOTE | 2022-01-31 03:33 | NUR ---
PT RESTING IN BED WITH EYES CLOSED. RESPIRATIONS EVEN. CALL LIGHT IN REACH.
--- NOTE | 2022-01-31 05:45 | NUR ---
VS AND I&O COMPLETE. PT UP TO BSC TO VOID AND HAVE SOFT BM WITH FWW AND SBA. STAFF ASSIST WITH DENNIS CARE. BACK TO BED, PT CHRIS WELL. GAIT STEADY. IMPROVED STRENGTH NOTED THIS AM. PT DENIES FURTHER NEEDS. CALL LIGHT IN REACH.
--- NOTE | 2022-01-31 05:45 | NUR ---
2 PA TO BEDSIDE COMMODE. PATIENT IS BACK IN BED. V/S AND I&O'S TAKEN AND CHARTED. NO OTHER NEEDS AT THIS TIME. CALL LIGHT AND BEDSIDE TABLE WITHIN REACH.
--- NOTE | 2022-01-31 07:05 | NUR ---
Report received from Thalia RIVERA. Pt resting in bed with eyes closed, even and unlabored respirations noted. No needs at this time. Will continue plan of care.
--- NOTE | 2022-01-31 07:30 | NUR ---
Spoke with Dr Mauricio. UPdated to PT and Dr. Simms's recommendation for SNF. He also feels this is best. Let him know did not want her to go to SNF. Asked if he felt pt could use HH and OP therapy. He does not feel this would work as pt is not in good enough condition to get into his office and to OP therapy at this time. I'll discuss with spouse when he arrives later.
--- NOTE | 2022-01-31 08:00 | NUR ---
Dr Mauricio in room to perform dressing change. New photos taken of pt wounds and printed for chart. Assessment complete. Pt denies pain and tolerates dressing change well.
--- NOTE | 2022-01-31 08:56 | NUR ---
Call from pts daughter, Eloisa. She states pt cannot go out of town as dad is [address] to see her daily. Updated the SNF in [facility] will not have a bed open for "weeks" per our conversation yesterday. Closest SNF is [facility], then [facility] in [place], and [facility] in [place]. [facility] and [facility] do not have any bed open until the end of next week. I am awaiting to hear if [facility] will take this pt. They do have a bed, but will review with their team around 9am this morning. Updated daughter, when I spoke with pt, she stated she has not showered for a last few months as she is fearful of falling. Pt also has difficulty walking or tansfering. Discussed two Drs and PT are strongly recommending SNF placement for PT/OT/SN. Daughter lives in [place] and states she is unable to help, but might be able to request FMLA. Let her know second choice would be HH in the home, but it could be up to 2 weeks until they would be able to see her mom. I will discuss with spouse today and check if he will allow pt to go to SNF.
--- NOTE | 2022-01-31 09:05 | NUR ---
Scheduled medications administered, SCOTTY Manuel in room assisting pt use BSC. Pt transfers back to bed, legs elevated. IV ABX infusing WNL. Pt denies pain or needs at this time. Call light in reach.
--- NOTE | 2022-01-31 09:16 | NUR ---
PT UP IN BED. VITALS AND IS AND COMPLETE. NO NEEDS AT THIS TIME. CALL LIGHT WITHIN REACH.
[2022-01-31] MEDS ORDERED: WARFARIN SODIUM5 MG PO (11:05)
--- NOTE | 2022-01-31 11:15 | NUR ---
Rubia, OT and myself spoke with pt and spouse about placement to [facility] if they have a bed open. Spouse does not want pt to go as he cannot drive there daily. States they have never been apart in over 60 years. Let them know daughter had stated she could visit once a week from [place] and drive him to visit. Pt stating she feels she needs to go but does not want to go unless her spouse agrees. They will discuss farther. I am awaiting to speak with [facility] to see if they will accept this pt.
--- NOTE | 2022-01-31 11:30 | NUR ---
Asked pt if I can call her son and check if he would be able to transport pts spouse to [facility] at least 1 x per week and she requests I call. Called and spoke with son and updated to our conversation with pt and spouse. Initially he staes he would be able to do so. Someone in the back ground was asking him questions and he states, "It's the hospital and they want to know if I can drive dad to see mom weekly while she is in the usp". Son then returned to our conversations and states, "my said No". At this point he hung up our call. Called and left a message for pts daughter and let her know, mom had asked if she would be able to stay with them for a short time to assist her dad while she is in a SNF. When I spoke with daughter earlier, she had voiced she would be working and to leave a message. She will call back when able.
--- NOTE | 2022-01-31 11:45 | NUR ---
Pt assisted by OT, CM in and out of room, pt on phone frequently with . She denies need from this RN at this time. Call light within reach.
--- NOTE | 2022-01-31 12:11 | NUR ---
Received reply for Teresa at [facility]. She states they would consider taking this pt if wound is debrided and pt has a wound vac. UPdated Dr. Simms and Dr. Mauricio. Dr. Mauricio states he debrided the wound yesterday. I will get the notes from his office and would be willing to order a wound vac. He is out of town. Dr. Simms in the office during our conversation on speaker phone, She will write and order for the wound vac. I will send order and notes to Teresa so they can get a wound vac auth for their facility if pt is accepted. I faxed the chart and notified her and asked if they could take this pt on Saturday. She replied, they have not confirmed acceptance yet. Will wait to hear if they will accept this pt.
--- NOTE | 2022-01-31 12:20 | NUR ---
IN TO ANSWER CALL LIGHT. PT IS FINISHED WITH LUNCH. PT ATE 10% OF LUNCH AND DRANK 236ML OF MILK. PT SITTING IN CHAIR. PT REPORTS BEING COLD, PROVIDED PT WITH WARM BLANKETS. PT REPORTED "THAT IS BETTER." NO OTHER NEEDS OR QUESTIONS AT THIS TIME. CALL LIGHT WITHIN REACH AND FAMILY IN THE ROOM.
--- NOTE | 2022-01-31 13:01 | NUR ---
PT CALL LIGHT ANSWERED. PT ASSISTED TO BSC USING FWW. PT ASSISTED TO BED BY 1 COMMUNITY HEALTH PLANNING DIRECTOR W FWW. NO NEEDS. CALL LIGHT WITHIN REACH.
--- NOTE | 2022-01-31 13:43 | NUR ---
Rounded on patient who is resting in bed after lunch and watching tv. She denies pain or needs at this time. Call light and personal belongings within reach.
--- NOTE | 2022-01-31 16:22 | NUR ---
Pt medicated with scheduled warfarin dose. Pt resting in bed, states feeling well overall and has no needs, denies pain. Legs elevated, dressings C/D/I. Assessment WNL. Call light in reach.
--- NOTE | 2022-01-31 20:04 | NUR ---
pt on room air, alert,oriented, pleasant and coop. Watching TV, no c/o pain. lungs clear sligh dim at bases, no c/o CP or SOB, turns and repositons self in bed, dressing to bilat LE covered with Koban dressing inplace, 2SL patent. tolerating liquids well. uses call ligth
--- NOTE | 2022-01-31 22:58 | NUR ---
PT UP TO BEDSIDE COMMODE. PT BACK IN BED. CALL LIGHT IN PLACE.
--- NOTE | 2022-01-31 23:48 | NUR ---
Pt awake watching TV, no c/o pain, LE elevated. call light at hands reach
--- NOTE | 2022-02-01 02:37 | NUR ---
PT AWAKE, WATCHNG TV, REPOSITIONS SELF IN BED, NO C/O PAIN. DRESSING TO BLE CALL LIGHT AND FLUIDS AT BEDSIDE
--- NOTE | 2022-02-01 06:40 | NUR ---
Pt on room air, hob elevated, lungs clear dim at bases, no cough, abd soft, no bm this shift, voided QS up to BSC 1pa/FWW. weak LE. 2 SL patent. LE edematous, dressing covered with coban bilat low extremities. cooperative, no c/o pain. uses call light, tolerating diet, no emesis
--- NOTE | 2022-02-01 07:27 | NUR ---
Dr Mauricio in room for dressing change on bilateral lower legs, pt resting in bed, resp even and unlabored. Pt tolerated dressing change well. Pt sitting up in bed with call light in reach.
--- NOTE | 2022-02-01 08:26 | NUR ---
COVID SWAB COLLECTED SENT TO THE LAB
--- NOTE | 2022-02-01 08:30 | NUR ---
LAC IV FLUSHED AND WAS VERY LEAKY. IV REMOVED WITH CATH INTACT. PT. EDUCATED ON S/SX OF IV COMPLICATIONS.
--- NOTE | 2022-02-01 10:23 | NUR ---
RECVD CALL FROM KATHE AT [facility] TO ADVISE THAT THEY HAVE DECLINED THE PATIENT AT THIS TIME DUE TO STAFFING.
--- NOTE | 2022-02-01 10:32 | NUR ---
ASSESSMENT DONE, DR LANCE IN ROOM TO SEE PT. PHYSICAL THERAPY ARRIVED TO WORK WITH PT. PT C/O OF SOME LIGHTHEADEDNESS, U/O NOTED TO BE 100 ML IN LAST 4 HOURS, NOTIFIED, PLAN TO MONITOR AND ENCOURAGE PO WATER INTAKE. BP 117/49 (65) HR 63.
--- NOTE | 2022-02-01 11:42 | NUR ---
Pt resting sitting in chair with legs elevated on pillow after doing bed bath. Pt states she is in no pain at this time and has no further needs right now. Call light in reach, resp even and unlabored.
--- NOTE | 2022-02-01 12:45 | NUR ---
PT ALERT, ORIENTED AND SITTING IN CHAIR. SCOTTY LOPEZ IS IN WORKING ON RM. PT IS PLEASANT, SAID SHE SLEPT WELL. REQUESTED A G.POST, GAVE BLESSING. WILL FOLLOW
--- NOTE | 2022-02-01 13:15 | NUR ---
Pt requested to get out of chair and back to bed. Also went to commode for 50 ml void and xs soft BM. Pt ambulated well with 1PA and FWW. Returned to bed with legs elevated, Resp even and unlabored, at beside and call light in reach.
--- NOTE | 2022-02-01 14:09 | NUR ---
ASSESSMENT DONE, REPOSITIONED PT IN BED WITH LEGS ELEVATED ON PILLOW. PT STATES SHE FEELS LESS ANXIOUS THAN THIS MORNING AFTER UPDATE ON PLAN OF CARE. DRESSINGS ON BILATERAL LOWER LEGS CLEAN, DRY AND INTACT WITH EXCEPTION OF SMALL AMOUNT OF SEROSANGUINOUS DRAINAGE BEGINNING TO SHOW ON RIGHT MCKINLEY. PT STATES SHE IS NOT IN ANY PAIN. PT RESTING IN BED WITH CALL LIGHT IN REACH, RESP EVEN AND UNLABORED.
--- NOTE | 2022-02-01 14:30 | NUR ---
INTO SPEAK WITH PATIENT. ADVISED THAT [facility] HAD DECLINED TO ACCEPT DUE TO STAFFING. PATIENT STATES SHE REALLY WOULD RATHER RETURN HOME. DISCUSSED THE OPTION OF HOME HEALTH VISIT AND HOME HEALTH PT, PATIENT STATES SHE IS AGREEABLE TO THAT. PATIENT CONFIRMS THAT HER DAUGHTER AND GRANDDAUGHTER WILL BE ARRIVING FROM THE [facility]. ADVISED THE PATIENT IF SHE HAD ANY FURTHER QUESTIONS OR CONCERNS TO CONTACT CASE MANAGEMENT.
--- NOTE | 2022-02-01 15:33 | NUR ---
In room to give medication, pt also asked to get up to use BSC for 325 ml void. 1PA to stand and pivot with FWW without issue. Pt returned to bed at her request with stated plan to get up to couch for dinner. Call light in easy reach.
--- NOTE | 2022-02-01 16:25 | NUR ---
PATIENT GOT A BED BATH AFTER SHE WORKED WITH PHYSICAL THERAPY THIS MORNING. PATIENT WAS SITTING UP IN HER CHAIR.
--- NOTE | 2022-02-01 17:19 | NUR ---
Pt up to BSC with 1PA and FWW for 250 ml void. Returned pt to chair afterward with feet elevated on pillows for comfort. Now sitting up eating dinner with . Call light in easy reach, no further needs at this time.
--- NOTE | 2022-02-01 17:27 | NUR ---
ROUNDED ON PT. PT IS ALERT AND QUIET. DAUGHTER AT BEDSIDE. TF RUNNING.
--- NOTE | 2022-02-01 18:50 | NUR ---
Pt resting in bed with legs elevated on pillow. Bilateral lower leg dressings intact. Vital signs stable, pt 98% on room air. LE remain edematous at 2+, generalized swelling in arms. Urine output improved throughout day with increased PO water intake. Pt resting in bed watching tv with call light in hand, resp even and unlabored.
--- NOTE | 2022-02-01 19:32 | NUR ---
in bed, room air, hob elevated to comfort, watchng tv. C/o rafa and LE pain. medicated with Tylenol. Alert and orineted, coop with assessments. Lungs clear bilat, abd soft, dontae. had a bm earlier on am shift. gets up to BSC 1PA/FWW. L elbow edema 1+. LE below knees 2+ to feet. scaly red area shown above dressing R leg. dressing bilat LE, covered with Coban, no drainage. legs elevated. light rash from shoulders to back of legs almost gone. no c/o itching. Call light and fluids at bedside. tolerating fluids well. SL LAC patent
--- NOTE | 2022-02-01 20:18 | NUR ---
Pt using 02 was on 2L, cpox on at bedside, sats 98-99%, decreased O2 to to 1L NC, cpox at bedside, sats 95% on 1L, Lungs with exp coarse wheezing. no c/o CP, no sob at this time but pt is laying down on his L side, declines BIPAP at this time, dry cough present at times, no drainage. SL RH patent. large abd HEA, has had multiple semiliquid bm's, passing large amount of strong smelling flatus, red area L upper and in between buttocks, had smear of bm with flatus. barrier cream applied. pt cont to take off urine measurement device from toilet and does not uses urinal even when cued. irritable at begining of interaction but easily redirectable, CBG 279, received 8 units ss insulin. cooperative. snacks given afterwards on requests. pt declined to be instructed on diabetic diet. currently on regular diet. tolerating liquids well, no emesis.
--- NOTE | 2022-02-01 22:47 | NUR ---
USED CALL LIGHT, UP TO BR/BSC. 1PA/FWW, CONT TO REQUIRE HELP MOVING LEFT LEG DOWN OR UP BACK TO BED. DRESSINGS INTACT. TOLERATED WELL. VOIDED CLEAR YELLOW URINE. LEGS ELEVATED, FRESH FLUIDS GIVEN CALL LIGHT AT HANDS REACH
--- NOTE | 2022-02-01 23:35 | NUR ---
awake, watching tv, no further c/o pain. no requests. legs elevated, call light and fluids at bedside
--- NOTE | 2022-02-02 03:07 | NUR ---
awake, watching tv. denies c/o pain. on room air. Up to br/bsc using 1pa/fww. voided and had brown colored soft, medium bm. back to bed, tolerated well, much better gait and helpin g self by lifting legs back to bed and repositioning self.
--- NOTE | 2022-02-02 05:01 | NUR ---
Pt has not slep much this shift, awake and watching tv everytime this RN does rounds. currently resting, eyes closed, no distress, on room air. Up to BSC, walked to BR 1PA/FWW requires much help with L leg. LE edematous, red scaly skin and covered dressings to both back of R calf and L foot/heel covered with coban. was medicated X1 with Tylenol per LE and h/a pain, effective. Flat affect, low motivation and many cues to increase self care as she may go home and ulcer and fall prevention teaching done, semireceptive, flat affect. con to reinforce.Had a bm this shift. voiding QS. Tolerating liquids well. uses call light. Generalized edema to UE present. SL patent, pleasant and coop
--- NOTE | 2022-02-02 05:23 | NUR ---
c/o increased itching front and back, light eash back still present. Medicated with Benadry IV 12.5mg. received 1st dose of po Levaquin. tolerating liquids well. dressing to LE intact. awake, watching tv
--- NOTE | 2022-02-02 10:07 | NUR ---
PT CALL LIGHT ON TO GET BACK TO BED FROM CHAIR. USED BSC PRIOR TO GETTING INTO BED WHEN PT BEGAN COMPLAINING OF DIZZINESS. BP 84/53 HR 81 WHILE SITTING. REPEAT BP SIMILAR, SEE VITALS. PT RETURNED TO BED WHEN DIZZINESS LESSENED. ORTHOSTATICS DONE, SEE VITALS. PT HAD TO SIT DUE TO DIZZINESS, WEAKNESS BEFORE 3 MIN BP FINISHED. PT NOW IN BED TALKING WITH CLARA PUMP SERVICE SUPERVISOR. CALL LIGHT AND PERSONAL ITEMS IN REACH. WILL NOTIFY .
--- NOTE | 2022-02-02 10:22 | NUR ---
SPOKE WITH PATIENT IN ROOM. NURSING WAS IN DOING ORTHOSTATIC VS. PATIENT STOOD WITH ASSIST AT BEDSIDE WITH WALKER. BECAME LIGHTHEADED FAIRLY QUICKLY AND WAS UNABLE TO STAND LONG ENOUGH TO GET BP DONE. HELPED BACK TO SITTING AND THEN TWO PERSON ASSIST TO BED. PATIENT AWAKE, ALERT, PLEASANT. DISCUSSED DISCHARGE PLAN, PATIENT STATES SHE REALLY DOESN'T WANT TO GO TO A FACILITY AND LEAVE HER ALONE. WE DISCUSSED THAT HE IS MOBILE AND DOING OK WITH HER IN THE HOSPITAL AND SHE IS NOT ABLE TO GET AROUND OR IN/OUT BED WITHOUT SIGNIFICANT HELP. SHE STATES SHE WOULD DO HOME HEALTH. DISCUSSED THAT THEY ARE ONLY THERE FOR A FEW DAYS A WEEK FOR AN HOUR OR SO. SHE DENIES HAVING FAMILY TO HELP. SHE STATES THEY CAN COME FOR A LITTLE BIT BUT CAN'T HELP MUCH. ASKED IF THEY HAVE FINANCES TO HIRE SOME IN-HOME HELP. SHE IS NOT SURE, "MAYBE". DISCUSSED THAT I CAN GIVE HER A BROCHURE FOR AN IN-HOME CARE COMPANY. ALSO DISCUSSED THAT SHE MAY NEED EQUIPMENT AT HOME. SHE STATES THEY HAVE WALKERS. SHE DENIES HAVING A BSC. SHE STATES SHE HAS PROBLEMS MOSTLY WITH GETTING SHOWERS. WE DISCUSSED THAT HOME HEALTH CAN HELP WITH THAT POSSIBLY. DISCUSSED BORROWING EQUIPMENT THROUGH LOC[facility]. PATIENT GOT TEARY AND STATES "I KNOW YOU ALL WANT ME TO GO SOMEWHERE AND I PROBABLY SHOULD, BUT I DON'T WANT TO LEAVE MY ALONE. I NEED TO GO HOME". EXPLAINED WE CAN ONLY RECOMMEND THINGS, IT IS HER DECISION AND WE ARE TO SUPPORT HER CHOICE AND NEEDS. SHE SEEMED RELIEVED WITH THIS. DISCUSSED I CAN COME BACK LATER TODAY WHEN HER DAUGHTER AND ARE BOTH HERE. SHE STATES HER DAUGHTER IS COMING FROM [place]. PATIENT DENIES NEEDS AT THIS TIME.
--- NOTE | 2022-02-02 11:23 | NUR ---
SPOKE AGAIN WITH PATIENT NOW THAT IS HERE. WE DISCUSSED HER PROBLEM WITH STANDING THIS MORNING. I STRONGLY ENCOURAGED THEM THAT SHE WOULD MOST LIKELY DO BETTER WITH SNF AT DISCHARGE FOR STRENGTHENING, WOUND CARE, ETC. BEFORE RETURNING HOME. ESPECIALLY SINCE HE HAS SOME PHYSICAL CHALLENGES HIMSELF. BOTH STATED UNDERSTANDING, BUT DO WANT HER TO BE ABLE TO COME HOME AT DISCHARGE. I FEEL LIKE THEY BOTH HAVE BEEN ADVISED WELL, AND WILL TRY TO HELP THEM WITH THEIR PLAN. GAVE THEM BROCHURE FOR [facility] AND [facility]. WE DISCUSSED BOTH. ALSO DISCUSSED POSSIBLY TALKING WITH [facility] TO FIND OUT IF THEY QUALIFY FOR SOME IN HOME HELP. THEY ARE BOTH LIVING ON [address]. SHE STATES THEY HAVE RUN THROUGH THEIR [employer] SAVINGS. GAVE THEM [employer] CARD AND EXPLAINED PROCESS. THEY STATE UNDERSTANDING. BOTH SAY THEIR DAUGHTER WILL BE HERE THIS AFTERNOON AND SHE WILL HELP THEM WITH SOME DECISIONS. QUESTIONS ANSWERED.
--- NOTE | 2022-02-02 11:37 | NUR ---
PT ALERT, ORIENTED AND VISITING WITH HER ERASMO. PT IS PLEASANT, GAVE BLESSING. WILL FOLLOW
--- NOTE | 2022-02-02 12:22 | NUR ---
ROUNDING ON PT. SHE HAS EATEN ALL OF HER LUNCH AND REPORTS DIZZINESS IS IMPROVED. BROUGHT WATER AND LEFT RESTING WITH CALL LIGHT IN REACH.
--- NOTE | 2022-02-02 13:15 | NUR ---
PT UP TO BCS WITH SLAG DUMPER YO for BM and small void. Pt complained of dizziness and feeling faint when attempting to return to bed. Pt returned to bed without issue and laid down with legs elevated. Dizziness improved after laying down. Pt encouraged to drink more water. Call light in reach. MD notified, awaiting orders for fluid bolus and repeat orthostatics after.
--- NOTE | 2022-02-02 16:08 | NUR ---
In room to give medication, pt resting in bed with daughter at bedside watching tv. IVF infusing. Pt states she is currently in no pain after getting PO tylenol. Resp even and unlabored. No dizziness at this time. Call light in hand.
--- NOTE | 2022-02-02 17:12 | NUR ---
SPOKE WITH PATIENT AND DAUGHTER GUIDO IN ROOM. PATIENT STILL WANTS TO RETURN HOME AT DISCHARGE. DAUGHTER STATES SHE WILL HELP THEM WITH ARRANGEMENTS. SHE HAS THE HANDOUTS TO MAKE CALLS. 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 SHE LIVES IN [place]. SHE STATES SHE MAY HAVE TO MOVE HERE, OR THEY HAVE A GRANDDAUGHTER THAT MIGHT LOOK AT COMING HERE. DISCUSSED WHAT HOME HEALTH CAN PROVIDE IF THAT IS ORDERED. DISCUSSED THEY NEED CARE AT LEAST UNTIL PATIENT IS STRONGER AND ABLE TO GET AROUND SAFELY AT HOME. THEY BOTH STATE UNDERSTANDING. THEY ARE GOING TO CALL [facility] SATURDAY FOR POSSIBLE INFORMATION ON HOME CARE. DISCUSSED THAT IT CAN TAKE SOME TIME TO GET ALL ARRANGED. AGAIN DISCUSSED WITH PATIENT THAT SNF COULD BE USED WHILE THEY WORK ON ALL THIS. SHE AGAIN DECLINES. NO FURTHER QUESTIONS.
--- NOTE | 2022-02-02 18:44 | NUR ---
Dressing changes done on bilateral lower extremities per Dr. Mauricio orders. No significant change in appearance since yesterday. Repeat orthostatics done following 1L NS bolus 134/50 HR 72 dropped to 94/41 HR 93, and did not recover after 3 min standing at 94/47 HR 87. See vitals. O2 sat 100% on RA, temp 98.4F. Pt reported dizziness with standing but less than before, and recovered within a few minutes of sitting back down. MD notified. Dr Hernandez also present to evalautate leg wounds. Awaiting orders for fluids overnight. Pt left laying in bed with call light and personal items in reach.
--- NOTE | 2022-02-02 20:10 | NUR ---
PATIENT RESPOSITIONED IN BED, SKIN APPEARS CLEAN AND INTACT TO BACKSIDE. PATIENT LUNG SOUNDS CLEAR, DIMINISHED IN BASIS. ADJUSTED TEMPERATURE IN ROOM FOR PATIENT. BANDAGES TO LOWER LEGS APPEAR C/D/I. CALL LIGHT WITHIN REACH, NO OTHER NEEDS AT THIS TIME.
--- NOTE | 2022-02-02 20:19 | NUR ---
ASSISTED PT WITH 1PA W/FWW AMBULATION TO BEDSIDE COMMODE. PT DID NOT REPORT ANY DIZZINESS WITH AMBULATION. PT HAD SMALL, SOFT BM AND AN UNMEASURABLE VOID. PT IS NOW BACK IN BED, CALL LIGHT WITHIN REACH, AND NO FURTHER NEEDS AT THIS TIME.
--- NOTE | 2022-02-03 01:24 | NUR ---
PATIENT UP TO BSC, HAD URGENCY AND FELT UNABLE TO AMBULATE INTO BATHROOM. PATIENT TRANSFERED TO [facility] WITH 1 PERSON ASSIST, MOSTLY WITH GETTING HER LEGS OFF THE BED. PATIENT THEN ABLE TO SIDE STEP AND GET SELF POSITIONED HIGH IN THE BED. DRESSING TO LOWER GABRIEL LEGS C/D/I. REMOVED SOCKS ONCE BACK IN BED FOR COMFORT, AND PROVIDED WARM BLANKETS. CALL LIGHT WITHIN REACH.
--- NOTE | 2022-02-03 05:03 | NUR ---
CALL LIGHT ANSWERED, pt UP SBA WITH FWW TO BSC TO VOID AND HAVE BM X1. pt TOLERATED WELL AND IS BACK IN BED, IV SITE WNL. FLUIDS INFUSING DIRECTED. VSS AND I&O'S COMPLETE, CALL LIGHT IN REACH. BOARD UPDATED AND ROOM TIDED. FRESH WATER ALSO PROVIDED. PRIMARY RN AWARE.
--- NOTE | 2022-02-03 08:06 | NUR ---
Dr Mauricio in to see pt, dressing changes done.
--- NOTE | 2022-02-03 08:28 | NUR ---
PATIENT UP IN CHAIR EATING MEAL. AM CARE COMPLETED. HAS NO OTHER NEEDS AT THIS TIME. CALL LIGHT WITHIN REACH.
--- NOTE | 2022-02-03 08:30 | NUR ---
ASSESSMENT DONE, PT UP TO BCS FOR VOID AND MED BM. NO DIZZINESS ON STANDING, PT ABLE TO MOVE OWN LEGS OFF BED THIS MORNING. RESP EVEN AND UNLABORED, PT SOCIABLE. RETURNED PT TO CHAIR FOR BREAKFAST, PT STOPPED BY TO TALK TO PT AND PLANS TO RETURN LATER. CALL LIGHT IN REACH.
--- NOTE | 2022-02-03 09:20 | NUR ---
GEM CARVER NOTIFIED ME THAT PT'S BP READ 89/45(56) AND WHEN SHE GOT HER UP FROM THE CHAIR TO THE BED PT COMPLAINED OF DIZZINESS. PT RESTED SITTING AT BEDSIDE AND REPEAT BP WAS 95/48(60) HR 76 O2 98% ON RA. PT STATES SHE IS STILL A LITTLE DIZZY, ONLY SOMEWHAT BETTER. PHYSICAL THERAPY CAME BY AT THIS TIME WELL AND TRIED TO DO SEATED EXERCISES BUT WAS NOT ABLE TO CONTINUE DUE TO PT'S COMPLAINT OF DIZZINESS. PT ASKED TO MOVE TO CHAIR AND IS NOW SEATED WITH LEGS ELEVATED ON PILLOW, PERSONAL ITEMS AND CALL LIGHT IN REACH. WILL NOTIFY .
--- NOTE | 2022-02-03 10:46 | NUR ---
ORTHOSTATICS DONE, PT COMPLAINED OF DIZZINESS WITH STANDING AND SAYS SHE HAS HAD BLURRY VISION THIS MORNING. 118/50(67) HR 83 O2 97% ON RA LAYING DOWN, 1 MIN STANDING 115/33(67) HR 76, 3 MIN STANDING 96/30(45) HR 67 ON MONITOR, MANUAL REPEAT 84/42. PT RETURNED TO BED TO LAY DOWN WITH FEET ELEVATED AND AT BEDSIDE. CALL LIGHT IN HAND. WILL NOTIFY .
--- NOTE | 2022-02-03 11:30 | NUR ---
Dr Hernandez notified of orthostatic bp results. See vitals. Awaiting orders for midodrine and repeat orthostatics 1-1.5 hr after administration.
--- NOTE | 2022-02-03 12:16 | NUR ---
MIDODRINE ADMINISTERED, BP 103/49 HR 79. PT SITTING UP IN CHAIR EATING LUCNH VISITING WITH . MINIMAL LIGHTHEADEDNESS AT THIS TIME. PT EDUCATED ON MEDICATION.
--- NOTE | 2022-02-03 14:02 | NUR ---
REPEAT ORTHOSTATICS DONE 1 HOUR AFTER MIDODRINE, SEE VITALS. PT REPORTED LIGHT LIGHTHEADEDNESS WITH STANDING, BUT SAYS SHE FEELS BETTER IN GENERAL. 1PA TO STAND, PT NEEDED HELP MOVING LEGS OFF BED. ASSESSMENT DONE, VSS, PT NOW RESTING IN BED WITH EYES CLOSED AND CALL LIGHT IN REACH.
--- NOTE | 2022-02-03 14:30 | NUR ---
PT ABLE TO AMBULATE TO NURSE'S STATION AND BACK WITH MINIMAL LIGHTHEADEDNESS USING FWW. BP AFTER RETURING TO ROOM 131/60(76) HR 98 O2 SAT 99% ON RA RR 18. MD NOTIFIED.
--- NOTE | 2022-02-03 15:37 | NUR ---
PATIENT UP IN CHAIR, THIS UNDERCUTTER ONLY HELPED WITH SHOWER CAP. PT UNABLE TO SHOWER AT THIS TIME, AND REFUSED TOTAL BED BATH AT THIS TIME. FAMILY IN ROOM, PATIENT HAS NO OTHER NEEDS AT THIS TIME. CALL LIGHT WITHIN REACH.
--- NOTE | 2022-02-03 16:16 | NUR ---
PTs GRANDDAUGHTER REPORTED TO NURSES STATION STATING "MY GRANDMA NEEDS HELP WITH GOING TO THE BATHROOM." IN TO PTs ROOM AND ASSISTED PT TO COMMODE WITH FWW. PT REQUESTED A LITTLE TIME AND KNOWS TO CALL WHEN FINISHED. CALL LIGHT WITHIN REACH.
--- NOTE | 2022-02-03 16:22 | NUR ---
IN TO ANSWER CALL LIGHT. PT ALREADY IN SITTING BACK IN CHAIR. PT REQUESTING A NEW WARM BLANKET, BLANKET GIVEN. PHONE AND CALL LIGHT WIHTIN REACH. NO OTHER NEEDS OR QUESTIONS AT THIS TIME.
--- NOTE | 2022-02-03 16:43 | NUR ---
IN ROOM TO GIVE MEDICATION, PT SITTING UP IN CHAIR WATCHING TV. PT IS SOMEWHAT SAD, VOICES DISAPPOINTMENT AFTER CHANGE IN PLAN TO NOT GET TO GO HOME TODAY. ENCOURAGEMENT GIVEN, DISCUSSED BENEFITS OF CHANGE TO WAIT FOR SNF. BP 101/48 HR 74. NO DIZZINESS. CALL LIGHT AND PERSONAL ITEMS ON TABLE. PT AWATING DINNER.
--- NOTE | 2022-02-03 17:43 | NUR ---
PATIENT IN BED AFTER MEAL. VITALS AND I/O'S COMPLETED. PT HAS NO OTHER NEEDS AT THIS TIME. CALL LIGHT WITHIN REACH.
--- NOTE | 2022-02-03 18:03 | NUR ---
Calll light answered to get up to toilet. Pt able to ambulate with FWW to bathroom to use commode in there. Pt needed help lifting legs into bed and while settling pt I noted left sock felt wet and that the dressing on that foot had soaked through. PRN dressing change done with help of Latisha RIVERA. No significant change in appearance of wounds since I saw them yesterday. Pt tolerated well.
--- NOTE | 2022-02-03 19:45 | NUR ---
ASSISTED PT TO BEDSIDE COMMODE. PT USED FWW AND 1PA. 200 ML OUTPUT. PT GAIT WAS WEAK. PT NOW LAYING IN BED, CALL LIGHT WITHIN REACH, AND NO FURTHER NEEDS AT THIS TIME.
--- NOTE | 2022-02-03 20:12 | NUR ---
VSS AND I&O'S COMPLETE, FRESH WATER PROVIDED. NO ADDITIONAL NEEDS, CALL LIGHT IN REACH.
--- NOTE | 2022-02-03 22:00 | NUR ---
PATENT RESTING WELL, DRESSING TO LOWER LEGS APPEAR C/D/I. ADMINISTRED TYLENOL PO PER MAR FOR GENERALIZED ACHES IN LOWER LEGS. FULL BODY ASSESMENT DONE. PATIENT DENIES ANY NEEDS. CALL LIGHT WITHIN REACH.
--- NOTE | 2022-02-04 02:00 | NUR ---
PATIENT APPEARS TO BE RESTING WELL WITH EYES CLOSED. CALL LIGHT WITHIN REACH.
--- NOTE | 2022-02-04 06:13 | NUR ---
PATIENT AMBULATED INTO BATHROOM, VOIDED 400 ML URINE. ADMINISTERED 0600 DOSE OF LEVAQUIN PO, PROVIDED SNACK. PATIENT TOLERATED ACTIVITY WELL. APPEARS TO BE AMBULATING STEADY ON FEET WITH WALKER. NOTED SWELLING APPEARS TO BE DECREASING. DRESSING TO LOWER EXTREMITY C/D/I. NO OTHER NEEDS AT THIS TIME.
--- NOTE | 2022-02-04 09:09 | NUR ---
IN TO GIVE MORNING MEDICATIONS. ASSESSMENT COMPLETE. PT REPORTING NO PAIN AT THIS TIME. PERIPHERAL IV IN RIGHT FOREARM C/I, SOME LEAKING NOTED. IV IN LEFT WRIST C/D/I AND FLUSED WELL. WEAKNESS NOTED IN BLE. BLE DRESSINGS C/D/I. BLE EDEMA NOTED. UNABLE TO ASSESS LLE PULSE DUE TO DRESSING CHANGE. PT LAYING IN BED WATCHING TELEVISION. NO OTHER NEEDS OR QUESTIONS AT THIS TIME. CALL LIGHT WITHIN REACH.
--- NOTE | 2022-02-04 09:59 | NUR ---
PATIENT LYING IN BED AFTER MEAL THIS MORNING PER REQUEST. VITALS AND I/O'S COMPLETED. PT HAS NO NEEDS AT THIS TIME. CALL LIGHT WITHIN REACH.
--- NOTE | 2022-02-04 10:39 | NUR ---
PT REQUESTING TO USE THE COMMODE. ASSISTED PT WITH FWW TO COMMODE AND BACK TO CHAIR. WHEELS LOCKED. PT REPORTING PAIN IN LEFT FOOT RATING A 4/10. PT STATES "I THINK HAVING IT UP WILL HELP WITH THE PAIN." LEGS ELEVATED WITH PILLOW. CALL LIGHT WIHTIN REACH. GRANDDAUGHTER IN ROOM. NO OTHER NEEDS OR QUESTIONS AT THIS TIME.
--- NOTE | 2022-02-04 12:49 | NUR ---
IN FOR PT MEDICATION. CHECKED LAST B/P, MEDICATION GIVEN. PT SITTING IN CHAIR WITH LEG ELEVATED. PT STATING DRESSINGS ON BLE NEED TO BE CHANGED, MADE PLAN FOR DRESSING CHANGE LATER IN THE DAY. NO OTHER NEEDS OR QUESTIONS AT THIS TIME. CALL LIGHT WITHIN REACH.
--- NOTE | 2022-02-04 13:55 | NUR ---
PATIENT IN CHAIR AFTER USING RESTROOM. VITALS COMPLETED BY NURSE ACKERMAN, I/O'S COMPLETED BY THIS CLERK OF SCALES. PT HAS NO OTHER NEEDS AT THIS TIME. CALL LIGHT WITHIN REACH.
--- NOTE | 2022-02-04 14:40 | NUR ---
IN TO ROUND ON PT. PT CONCERNED ABOUT DISCHARGE PLAN. THIS RN DISCUSSED POC AND PT IS AGREEABLE.
--- NOTE | 2022-02-04 14:59 | NUR ---
AFTER VERIFYING PLAN WITH CHARGE NURSE AND MD, PT EDUCATED AND REASSURED ABOUT DISCHARGE PLAN. PT VERBALIZES UNDERSTANDING AND HAS NO OTHER QUESTIONS AT THIS TIME.
--- NOTE | 2022-02-04 15:30 | NUR ---
IN TO CHANGE DRESSINGS BLE. REMOVED OLD DRESSINGS. PATTED DILUTE BETADINE SOLUTION AND GAUZE TO WOUNDS TO BLE. APPLIED ZEROFORM APPLIED OVER WOUNDS TO BLE. APPLIED ABD PAD TO LEFT DORSAL FOOT. 2X2 GAUXE TO BOTTOM OF HEEL ON LEFT FOOT. WRAPPED BLE WITH KERLIX. SECURED WITH NON TENSION COBAN. PT TOLERATED DRESSING CHANGE WELL. NO OTHER QUESTIONS OR NEEDS AT THIS TIME. CALL LIGHT IN REACH.
--- NOTE | 2022-02-04 17:04 | NUR ---
IN TO GIVE MEDICATIONS. B/P 125/54. MEDICATIONS GIVEN. PT ASSESSMENT COMPLETE, UNCHANGED FROM AM ASSESSMENT. SEE PREVIOUS NOTE ABOUT BLE DRESSING CHANGE. PT REQUESTING TO USE RESTROOM. ASSISTED PT TO RESTROOM WITH FWW AND BACK TO CHAIR. PT SITTING IN CHAIR. MEAL TRAY ARRIVED. PTs SPOUSE IN ROOM. CALL LIGHT WITHIN REACH. NO OTHER NEEDS OR QUESTIONS AT THIS TIME.
--- NOTE | 2022-02-04 18:25 | NUR ---
PATIENT SITTING IN CHAIR WATCHING TV AFTER MEAL. VITALS AND I/O'S COMPLETED. PT HAS NO OTHER NEEDS AT THIS TIME. CALL LIGHT WITHIN REACH.
--- NOTE | 2022-02-04 18:35 | NUR ---
PT BLE DRESSINGS CHANGED TODAY. PT AMBULATED TO BATHROOM WITH FWW AND 1 PERSON ASSIST. NO PRN MEDICATIONS GIVEN DURING SHIFT. EXTENSIVE DISCUSSION WITH PT REGARDING DISCHARGE PLAN. PT HAS CONCERNS ABOUT DRESSING CHANGES POST DISCHARGE.
--- NOTE | 2022-02-04 19:02 | NUR ---
IN TO ANSWER CALL LIGHT. PT REQUESTING TO USE RESTROOM. STAND BY ASSIST WITH FWW. PT SITTING ON TOILET. PT VERBALIZES UNDERSTANDING TO PULL WALL CORD WHEN FINISHED.
--- NOTE | 2022-02-04 19:07 | NUR ---
IN TO ANSWER CALL LIGHT. PT FINISHED WITH TOILETING. SCOTTY RAM AND BRITTNEY FAJARDO TO ASSIST PT. NO FURTHER NEEDS FROM THIS RN.
--- NOTE | 2022-02-04 21:50 | NUR ---
ADMINISTERED HS MEDICATIONS, PATIENT APPEARS TO BE IN HIGH SPIRITS. VERBALIZES LOOKING FORWARD TO GOING HOME WITH HOME HEALTH SERVICES. PATIENT REPORTS SHE HAS A GREAT GRAND DAUGHTER THAT IS GOING TO MOVE IN WITH HER AND HER AND HELP WITH CARE WELL. SHE SEEMS TO BE IN GOOD SPRIRITS. DRESSING TO LOWER GABRIEL LEGS C/D/I. ADMINISTERED TYLENOL PO PRN PER JUL FOR GENERALIZED ACHES IN LEGS. ENCOURAGED PATIENT TO CALL IF LATER SHE WAKES UP AND WOULD LIKE TO GO ON A WALK. PATIENT VERBALIZED UNDERSTANDING AND STATED " I WOULD LIKE THAT".
--- NOTE | 2022-02-04 22:15 | NUR ---
PATIENT UP TO BATHROOM WITH WALKER, APPEARS STEADY ON FEET. DEMONSTRATED TO PATIENT WITH GAIT BELT HOW TO PUT AROUND FOOT TO HELP HER MOVE HER LEGS OUT OF BED, WITH THIS METHOD PATIENT ABLE TO SIT UP WITHOUT ASSISTANCE. BACK TO BED, CALL LIGHT WITHIN REACH. PATIENT TOLERATED OVERALL ACTIVITY WELL.
--- NOTE | 2022-02-05 01:00 | NUR ---
CALL LIGHT ANSWERED. 1 PA FWW TO BATHROOM. ASSISTED ON DENNIS CARE WIPES. PATIENT IS BACK IN BED. NO OTHER NEEDS AT THIS TIME.
--- NOTE | 2022-02-05 05:53 | NUR ---
PATIENT GOT UP TO USE THE BATHROOM USING WALKER 1 PA. PATIENT HAD A SMALL FORMED STOOL AND VOIDED 400ML. PATIENT IS BACK IN BED. NO OTHER NEEDS AT THIS TIME.
--- NOTE | 2022-02-05 07:15 | NUR ---
REPORT RECEIVED FROM NICOLE BENSON. PT SITTING UP IN CHAIR WITH TELEVISION ON. PT ASKING ABOUT TRANSPORTATION FOR WHEN DISCHARGED. PT EDUCATED THAT STAFF WILL CALL FOR TRANSPORTAION WHEN READY. NO OTHER NEEDS OR QUESTIONS AT THIS TIME. CALL LIGHT IN REACH.
--- NOTE | 2022-02-05 09:16 | NUR ---
IN FOR MORNING MEDICATIONS. PT SITTING UP IN CHAIR WITH TELEVISION ON. ASSESSMENT COMPLETE. PT COMPLAINS OF 5/10 SHARP PAIN IN LATERAL LLE AFTER DRESSING CHANGE THIS AM. PRN TYLENOL GIVEN. RIGHT FOREARM IV REMOVED DUE TO LEAKING. LEFT FOREARM IV FLUSHED WITH 5ML NS, SEE JUL. STANDBY ASSIST PT WITH FWW TO BATHROOM AND BACK TO CHAIR. PT SITTING IN CHAIR WITH BLE ELEVATED. CALL LIGHT IN REACH. NO OTHER QUESTIONS OR CONCERNS AT THIS TIME.
--- NOTE | 2022-02-05 10:40 | NUR ---
IN TO ROUND ON PT. PT SITTING IN CHIAR WITH LEGS ELEVATED WATCHING TELEVISION. PT REPORTING PAIN 3/10 IN LATERAL LLE. NO OTHER NEEDS OR QUESTIONS AT THIS TIME. CALL LIGHT IN REACH.
--- NOTE | 2022-02-05 11:03 | NUR ---
IN TO ANSWER CALL LIGHT. PT REQUESTING TO HAVE FEET DOWN. EDUCATED PT ON IMPORTANCE OF ELEVATION WITH EDEMA AND CELLULITIS. PT PUTS FEET DOWN AND FEET COLOR TURNED PURPLE. ELEVATED LEGS AND FEET AND COLOR RETURNED TO NORMAL. PT AGREEABLE TO SITTING IN CHAIR WITH LEGS ELEVATED WITH LEG REST AND TWO PILLOWS. CALL LIGHT IN REACH. NO OTHER NEEDS OR QUESTIONS AT THIS TIME.
--- NOTE | 2022-02-05 12:08 | NUR ---
IN TO REASSESS PT PAIN. PT SITTING IN CHAIR WITH LUNCH TRAY. FAMILY IN ROOM. PT REPORTING PAIN 3/10. PT STATES THE PAIN IS TOLERABLE AT THIS TIME. NO OTHER NEEDS OR QUESTIONS AT THIS TIME. CALL LIGHT IN REACH.
--- NOTE | 2022-02-05 12:27 | NUR ---
IN TO GIVE PT MEDICATION. PT SITTING IN CHAIR WIHT MEAL TRAY AND SPOUSE IN ROOM. MEDICATIONS GIVEN, SEE MAR. NO OTHER NEEDS OR QUESTIONS AT THIS TIME. CALL LIGHT IN REACH.
--- NOTE | 2022-02-05 13:00 | NUR ---
Spoke with pt and her spouse. Discussed with pt what her plan is today for dc. Pt states she definitely does not want to go to a SNF. Pt states she doesn't want to go home. We then discussed she was dischargable last week and we have just been waiting for her to make a decision. 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 We discussed what pt is needing/wanting. I called and spoke with Ck from [place] and he will set aside a wheelchair and a commode for pts spouse to poultry picker. Pt denies other needs, states she will thinks her daughter or granddaughter is coming to stay and assist her. I let her know if she goes home and is not able to care for self to call her Dr. She will be able to go to a SNF for 30 days from her dc.
--- NOTE | 2022-02-05 13:23 | NUR ---
PATIENT UP TO BATHROOM WITH SBA AND FWW.
--- NOTE | 2022-02-05 13:51 | NUR ---
IN ROOM FOR PT REASSESSMENT. NO CHANGES SINCE PREVIOUS ASSESSMENT. BLE DRESSINGS C/D/I. DR. SHAIKH IN ROOM TO TALK TO PT. PT SITTING IN CHAIR WITH BLE ELEVATED. PLACED PILLOW UNDER BLE. NO OTHER NEEDS OR QUESTIONS AT THIS TIME. CALL LIGHT IN REACH. FAMILY IN ROOM.
[2022-02-05] MEDS ORDERED: MIDODRINE HCL5 MG PO (14:13)
--- NOTE | 2022-02-05 14:17 | NUR ---
PT ALERT, ORIENTED AND SITTING IN CHAIR. PT SEEMS DETERMINED TO DC TODAY. MENTIONED HER AND G.DAUGHTER WILL BE THERE TO HELP, AND PLANS ON HH RN TO ASSIST WELL. PT REQUESTED PRAYER, GAVE BLESSING
--- NOTE | 2022-02-05 15:31 | NUR ---
DISCHARGE TEACHING PROVIDED REGARDING WOUND CARE, RX, AND AFIB. ALL QUESTIONS WERE ANSWERED. IV REMOVED, WNL. VSS. A&O. PERSONAL BELONGINGS RETURNED. , ERASMO, TO PROVIDE RIDE HOME.
--- NOTE | 2022-02-05 16:04 | NUR ---
Called and left a message for Dr. Mauricio, pt has discharged and will need to see him as well as HH for wound care as they are able to see 3 x per week and not complete daily dressing changes.
== END 2022-02-05 15:25 | disposition home health service (06) | DRG 623 ==
LOC: ED 15:29 → MS 22:00 → CCU 22:00 → MS 22:00
PROVIDERS: ADMIT Family Medicine; ATTEND Internal Medicine
PROC: 0J9R0ZZ Drainage of Left Foot Subcutaneous Tissue and Fascia, Open Approach (ICD-10-PCS; 2022-01-27)
PROC: 0JBR0ZZ Excision of Left Foot Subcutaneous Tissue and Fascia, Open Approach (ICD-10-PCS; 2022-01-30)
PROC: 0JBR0ZZ Excision of Left Foot Subcutaneous Tissue and Fascia, Open Approach (ICD-10-PCS; 2022-01-31)
PROC: 0JBR0ZZ Excision of Left Foot Subcutaneous Tissue and Fascia, Open Approach (ICD-10-PCS; principal; 2022-02-05)
DX: E11.628 Type 2 diabetes mellitus with other skin complications (principal); E87.1 Hypo-osmolality and hyponatremia; L03.116 Cellulitis of left lower limb; L97.422 Non-pressure chronic ulcer of left heel and midfoot with fat layer exposed; E11.621 Type 2 diabetes mellitus with foot ulcer; I48.91 Unspecified atrial fibrillation; Z20.822 Contact with and (suspected) exposure to COVID-19; I95.1 Orthostatic hypotension; E87.5 Hyperkalemia; B96.89 Other specified bacterial agents as the cause of diseases classified elsewhere; L97.522 Non-pressure chronic ulcer of other part of left foot with fat layer exposed; R79.1 Abnormal coagulation profile; I10 Essential (primary) hypertension; E78.00 Pure hypercholesterolemia, unspecified; E03.9 Hypothyroidism, unspecified; Z98.890 Other specified postprocedural states; Z88.1 Allergy status to other antibiotic agents; Z79.01 Long term (current) use of anticoagulants; Z79.899 Other long term (current) drug therapy
CPT/HCPCS: 36415; 51702; 71045; 73630; 80048; 80053; 80202; 81001; 83605; 83735; 83935; 84132; 84300; 84484; 85025; 85060; 85610; 85730; 87040; 87070; 87077; 87186; 87205; 87502; 93005; 93010; 94640; 97032; 97110; 97116; 97162; 97167; 97530; 97535; 99285-25; A9270; C9803; J0610; J1170; J1200; J1815; J1956; J2543; J3370; J7030; J7060; U0003

== ENCOUNTER 2022-03-30 03:54 | Inpatient (IN) | payer MEDICARE, OTHER ==
[~2022-03-30] VITALS: Ht 167.6 cm; Wt 84.3 kg
[~2022-03-30 03:54] MED LIST changes: +MIDODRINE HCL5 MG PO
--- OUTSIDE RECORDS SUMMARY | 2022-03-30 04:02 | XMS ---
PreManage Notification: DAREK WITT [employer] Events No recent Security Events currently on file CRITERIA MET - 6 ED Visits in 6 Months CARE PROVIDERS Wanda Garrison-C Nurse Practitioner: Current PHONE: [phone] Rolo has no Care Guidelines for this patient. Joesph VISIT COUNT (12 MO.) 6 [facility] TOTAL 6 NOTE: Visits indicate total known visits. ED/C VISIT TRACKING (12 MO.) 03/30/2022 03:55 [facility] [place] TYPE: Emergency COMPLAINT: - FALL 01/25/2022 15:29 [facility] [place] TYPE: Emergency COMPLAINT: - MULTIPLE COMPLAINTS 12/28/2021 10:36 [facility] [place] TYPE: Emergency COMPLAINT: - FALL DIAGNOSES: - Contusion of other part of head, initial encounter - Allergy status to other drugs, medicaments and biological substances - Unspecified atrial fibrillation - Unspecified fall, initial encounter - FPC (current) use of anticoagulants 12/25/2021 02:[address] [facility] TYPE: Emergency COMPLAINT: - FALL DIAGNOSES: - Other filler leaf cutter long (current) drug therapy - Essential (primary) hypertension - Laceration without foreign body of other part of head, initial encounter - Unspecified fall, initial encounter - Allergy status to other antibiotic agents - FPC (current) use of anticoagulants 12/19/2021 13:43 [facility] TYPE: Emergency COMPLAINT: - SWELLING/BODY PART 11/29/2021 18:25 [facility] TYPE: Emergency COMPLAINT: - LT FOOT PAIN DIAGNOSES: - Rash and other nonspecific skin eruption - Cellulitis of right lower limb - Venous insufficiency (chronic) (peripheral) - Essential (primary) hypertension INPATIENT VISIT TRACKING (12 MO.) 01/25/2022 22:00 [facility] [place] TYPE: Medical Surgical COMPLAINT: - ATRIAL FIBRILLATION, CELLULITIS DIAGNOSES: - Other specified postprocedural states - Hypo-osmolality and hyponatremia - Pure hypercholesterolemia, unspecified - Cellulitis of left lower limb - Abnormal coagulation profile - Other halfway (current) drug therapy - Contact with and (suspected) exposure to COVID-19 - Non-pressure chronic ulcer of left heel and midfoot with fat layer exposed - Type 2 diabetes mellitus with foot ulcer - long term care phlebotomist (current) use of anticoagulants - FPC (current) use of anticoagulants - Hypothyroidism, unspecified - Other halfway (current) drug therapy - Other specified bacterial agents as the cause of diseases classified elsewhere - Pure hypercholesterolemia, unspecified - Non-pressure chronic ulcer of other part of left foot with fat layer exposed - Hyperkalemia - Orthostatic hypotension - Non-pressure chronic ulcer of other part of left foot with fat layer exposed - Hyperkalemia - Type 2 diabetes mellitus with foot ulcer - Other specified bacterial agents as the cause of diseases classified elsewhere - Hypo-osmolality and hyponatremia - Contact with and (suspected) exposure to COVID-19 - Essential (primary) hypertension - Type 2 diabetes mellitus with other skin complications - Unspecified atrial fibrillation - Abnormal coagulation profile - Orthostatic hypotension - Allergy status to other antibiotic agents - Allergy status to other antibiotic agents - Non-pressure chronic ulcer of left heel and midfoot with fat layer exposed - Essential (primary) hypertension - Other specified postprocedural states - Hypothyroidism, unspecified - Unspecified atrial fibrillation 12/19/2021 16:14 [facility] [place] TYPE: Medical Surgical COMPLAINT: - ACUTE LEFT LOWER EXTREMITY SEVERE CELLULITIS DIAGNOSES: - Other filler leaf cutter long (current) drug therapy - Chronic atrial fibrillation, unspecified - Other specified postprocedural states - Hypothyroidism, unspecified - Chronic atrial fibrillation, unspecified - long term care phlebotomist (current) use of anticoagulants - Hypothyroidism, unspecified - Essential (primary) hypertension - Elevated white blood cell count, unspecified - long term care phlebotomist (current) use of anticoagulants - long term care phlebotomist (current) use of antibiotics - Contact with and (suspected) exposure to COVID-19 - Pure hypercholesterolemia, unspecified - Essential (primary) hypertension - Other halfway (current) drug therapy - Contact with and (suspected) exposure to COVID-19 - Other specified postprocedural states - Pure hypercholesterolemia, unspecified - FPC (current) use of antibiotics - Adverse effect of cephalosporins and other beta-lactam antibiotics, initial encounter - Cellulitis of left lower limb - Allergy, unspecified, initial encounter - Adverse effect of cephalosporins and other beta-lactam antibiotics, initial encounter [email or web address]
--- NOTE | 2022-03-30 08:00 | NUR ---
REPORT RECEIVED FROM WEATHER STRIP INSTALLER AND PT. CARE RESUMED. PT. ARRIVED VIA STRETCHER AND VITALS TAKEN BY CHARGE. PT. IS ALERT AND ORIENTED TO ALL. INTAKE AND ASSESSMENT COMPLETED. SHE C/O PAIN BLE AT WOUND SITES AND ADMIN PAIN MED. PHOTO CONSENT SIGNED AND PHOTOS TAKEN. MD IN THE ROOM. BLE WOUNDS DRESSED BY CHARGE. IVF AND ABX INFUSING. DISCUSSED SAFETY, POC MEDS. LEFT RESTING WITH CALL LIGHT IN REACH.
--- NOTE | 2022-03-30 08:10 | NUR ---
PT ARRIVED FROM ER. PT TRANSFERED TO BED WITH HOVER LAZ AND 2 PERSON ASSIST. PT REPORTS TOLERABLE LOWER BACK PAIN THAT IS "BECAUSE OF THIS POSITION I'M IN." VITAL SIGNS STABLE. BMAT ASSESSMENT DONE, PT BMAT 3 WITH FWW AND BEDSIDE COMODE, AND 1 PERSON ASSIST. PT UP TO BEDSIDE COMODE. VOIDS 200ML CLEAR YELLOW URINE. PT ASSISTED WITH DENNIS CARE. DEPENDS CHANGED. 1 PERSON ASSIST WIHT FWW BACK TO BED. HEAD OF BED ELEVATED TO 60 DEGREES, PT EATING BREAKFAST. PTS PRIMARY RN UPDATED. CALL LIGHT WITHIN REACH. BED RAILS UP.
[2022-03-30] MEDS ORDERED: POTASSIUM CHLO10 ME1 PO (08:27)
[2022-03-30] MEDS ORDERED: WARFARIN SODIUM2 MG PO (08:33)
[2022-03-30] MEDS ORDERED: FUROSEMIDE20 MG PO (08:33)
[2022-03-30] MEDS ORDERED: WARFARIN SODIUM1 MG PO (08:34)
--- NOTE | 2022-03-30 09:00 | NUR ---
PT. C/O BLE WOUND PAIN AFTER TYLENOL ADMIN EARLIER. UPDATED AND WILL ORDER GABAPENTIN.
--- NOTE | 2022-03-30 09:10 | NUR ---
THIS RN TO ROOM WITH DR LANCE AND PTS PRIMARY RN FOR WOUND CARE. PT REPORTS SHE HAS BEEN SEEING DR. JADE AND THINKS SHE WAS THERE "JUST YESTERDAY." PT STATES DR JIMENEZ HAS BEEN USING MEDIHONEY ON HER WOUNDS. PHTOGRAPHS TAKEN OF WOUNDS. ORDERS GIVEN BY DR LANCE TO APPLY MEDIHONEY, ADAPTIC, GAUZE, KERLIX AND COBAN AROUND LEFT LEG AND WOUNDS. DR LANCE ALSO STATES TO APPLY LOTION TO BOTH LEGS RELATED TO VERY DRY AND FLAKING SKIN THROUGHOUT CALVES AND FEET. BILATERAL CALVES SKIN DARKENED WITH BRUISING NOTED ON RIGHT MCKINLEY (SEE PHOTOGRAPHS). DRESSING APPLIED WITH ASSISTANCE FROM DR. LANCE, SEE COMPLEX WOUND ASSESSMENT. PT REPORTS "A LITTLE" PAIN WITH DRESSING APPLICATION. PT DENIES NEED FOR PAIN MEDICATION AT THIS TIME. PT IS ABLE TO IDENTIFY THE TOE THAT IS TOUCHED ON BOTH FEET. NO ADDITIONAL NEEDS AT THIS TIME. ORDERS ENETERE AND REPEAT BACK PERFORMED. PTS PRIMARY RN UPDATED. PT RESTING IN BED. CALL LIGHT WITHIN REACH. BED RAILS UP.
[2022-03-30] MEDS ORDERED: TYLENOL325 MG PO (09:36)
--- NOTE | 2022-03-30 09:37 | NUR ---
MED REC COMPLETE
--- NOTE | 2022-03-30 09:38 | NUR ---
patient in bed after meal. vitals and i/o's completed. pt has no other needs at this time. call light within reach.
--- NOTE | 2022-03-30 12:40 | NUR ---
Spoke with Kareen, I have worked with her several times. She cont. to live at home with her spouse. Together they do well. Pt has difficulty walking and uses a walker. Spouse also uses a walker. Pt is no longer able to grocery shop, spouse does all the shopping and cooking. He also drives. Pt states spouse cannot hear and could not hear her calling when she fell night before last. Pt cont. to work with HH for dressing changes and PT. Pt plans on dc to home when cleared medically. Pt denies financial issues.
--- NOTE | 2022-03-30 13:13 | NUR ---
PATIENT IN BED AFTER MEAL. VITALS AND I/O'S COMPLETED, PT HAS NO OTHER NEEDS AT THIS TIME. CALL LIGHT WITHIN REACH.
--- NOTE | 2022-03-30 19:20 | NUR ---
RECEIVED REPORT FROM MEGHAN RIVERA. PT LAYING IN BED AWAKE AND ALERT. PT STATES SHE IS NOT EXPERIENCING ANY PAIN OR NAUSEA AT THIS TIME. DRESSING ON LEFT LEG IS C/D/I. CALL LIGHT WITHIN REACH, NO FURTHER NEEDS AT THIS TIME.
--- NOTE | 2022-03-30 21:30 | NUR ---
IN PT ROOM FOR ASSESSMENT, VS, I/O'S, AND BULK SYSTEM OPERATOR. ASSISTED PT W/AMBULATION TO BATHROOM. REQUIRED 1PA W/FWW, BACKSIDE SHOWED NO EVIDENCE OF SKIN BREAKDOWN. PT RESTING IN BED, TOLERATED ORAL MEDS W/OUT DIFFICULTY. PT ALERT AND ORIENTED X4. LUNGS ARE CLEAR THROUGHOUT. BOWEL TONES ACTIVE X4. PT REPORTS NO PAIN, NAUSEA, N/T, DIZZINESS AT THIS TIME. 3+ EDEMA PRESENT IN BLE, FEET ELEVATED ON PILLOW. VSS. DRESSING ON LEFT LEG IS C/D/I, RON BANDAGE IN PLACE ON RIGHT LEG. CALL LIGHT WITHIN REACH, NO FURTHER NEEDS AT THIS TIME.
--- NOTE | 2022-03-30 22:30 | NUR ---
IN PT ROOM FOR BEEPING PUMP. READJUSTED TOWEL WITH COBAN ON ARM TO PREVENT OCCLUSION OF AC IV, EDUCATED PT ABOUT KEEPING ARM STRAIGHT. PT STATED BURNING ON BACK OF RIGHT CALF, REMOVED RON WRAP AND CONSULTED [employer]IN[employer] MINERNICOLE VEE. WOUND CLEANSED AREA OF ULCER AND ABRASION, ABD PAD APPLIED WITH RON WRAP OVER TOP. LEGS PLACED ON PILLOWS FOR EDEMA AND TO EASE PRESSURE ON ULCER. CALL LIGHT WITHIN REACH, NO FURTHER NEEDS AT THIS TIME.
--- NOTE | 2022-03-30 22:55 | NUR ---
ANSWERED PT CALL LIGHT FOR DISCOMFORT. PT REQUESTED PILLOWS BE REMOVED FROM UNDER LEGS. REMOVED PILLOWS, PT NOW RESTING WITH EYES CLOSED. CALL LIGHT WITHIN REACH, NO FURTHER NEEDS AT THIS TIME.
--- NOTE | 2022-03-31 02:30 | NUR ---
IN PT ROOM FOR ASSESSMENT AND VS. VSS. PT DROWSY WITH EYES CLOSED RESTING IN BED, RESPIRATIONS ARE EVEN AND UNLABORED, NO SIGNS OF DISTRESS. NO ACUTE CHANGES FROM PREVIOUS ASSESSMENT. WITH ASSISTANCE OF [employer] ENGAGEMENT LEADER AND NANDA PRATER RN, PHOTOS TAKEN OF RIGHT CALF, WOUND CLEANSER APPLIED, MOISTURIZER APPLIED. FOLLOWED WOUND CARE ORDER FOR TX OF RT LEG. PT TOLERATED WELL AND REPORTED NO PAIN. ASSISTED PT TO BATHROOM, MINIMAL DIZZINESS REPORTED, BEDSIDE COMMODE USED W/1PA AND FWW. REDNESS BETWEEN GLUTEAL FOLDS, BLANCHABLE, BARRIER CREAM APPLIED. REDNESS UNDER PANNUS, NIO FOR DESENEX POWDER. PT NOW RESTING BACK IN BED, WARM BLANKETS PROVIDED, CALL LIGHT WITHIN REACH, NO FURTHER NEEDS AT THIS TIME.
--- NOTE | 2022-03-31 07:30 | NUR ---
Patient resting in bed, eyes closed, no notable distress. IV patent, fluids infusing per provider order. Bed alarm intact. Personal supplies and call light within reach.
--- NOTE | 2022-03-31 07:38 | NUR ---
UNEVENTFUL NIGHT FOR PT. PT SLEPT MAJORITY OF THE NIGHT. NEW DRESSING AND PICTURES TAKEN FOR RIGHT CALF ULCER AND ABRASION, PER WOUND DRESSING ORDERS. AREA CLEANED WITH WOUND CLEANSER BEFORE APPLICATION. DRESSING ON LEFT LEG REMAINS C/D/I. PT REQUIRES REORIENTATION UPON WAKING UP TO PLACE, SURROUNDINGS, TIME, AND REASON FOR ADMIT. VSS. PT REQUIRES HEAVY 1PA W/FWW TO BEDSIDE COMMODE. URINARY OUTPUT SUFFICIENT. CONTINUOUS FLUIDS INFUSING DIRECTED. PT USES CALL LIGHT APPROPRIATELY. PT REMAINS ON RA W/O2 SATS IN 90'S, LUNG SOUNDS CLEAR THROUGHOUT. PT CHRONIC AFIB, IRREGULAR RHTYHM FELT IN PULSES AND W/AUSCULTATION. PT REPORTS NO PAIN, NAUSEA, N/T THIS SHIFT.
--- NOTE | 2022-03-31 11:28 | NUR ---
Tylenol 650mg po admin for reports of 7/10 bilat leg pain. Patient sitting up in chair with legs elevated at this time.
--- NOTE | 2022-03-31 17:45 | NUR ---
Left lower leg dressing saturated with foul-smelling purulent drainage. New dressing placed at this time per provider order. Medial left leg wound and left anterior foot wound cleansed with wound cleaner and preparer then dried. Adaptic placed over medihoney to wound sites followed by gauze, kerlix then coband. Patient tolerated well. Legs elevated on pillows. Right leg dressing remains CDI.
--- NOTE | 2022-03-31 19:30 | NUR ---
RECEIVED REPORT FROM PRICE RIVERA. PT RESTING IN BED. DRESSING ON RIGHT AND LEFT LEG C/D/I. PT REQUESTED PILLOW BE REMOVED FROM LOWER LEGS. ASSISTED PT W/AMBULATION TO RESTROOM VIA 1PA W/FWW, PT GAIT WEAK AND UNSTEADY. BARRIER CREAM APPLIED TO REDNESS IN GLUTEAL FOLDS, DESENEX POWDER APPLIED TO GROIN FOLDS AND DENNIS REGION. NEW DEPENDS IN PLACE. PT NOW RESTING IN BED ON THE PHONE, CHUX PLACED UNDER LEGS. LUNG SOUNDS REMAIN CLEAR THROUGHOUT, PT ON RA SATS OF 99%. 2+ EDEMA TO LOWER EXTREMETIES BILAT, SKIN IS FRAGILE BUT PINK/WARM. PT IS ALERT AND ORIENTED X4 AT THIS TIME. BOWEL TONES ACTIVE X4. PT REPORTS NO PAIN, NAUSEA, N/T, SOB, OR DIZZINESS AT THIS TIME. CALL LIGHT WITHIN REACH, NO FURTHER NEEDS AT THIS TIME.
--- NOTE | 2022-03-31 20:12 | NUR ---
IN PT ROOM FOR BOBBIN DUMPER. PT ABLE TO SWALLOW PILLS W/OUT DIFFICULTY AND IS ALERT AND ORIENTED IN BED. CALL LIGHT WITHIN REACH, NO FURTHER NEEDS AT THIS TIME.
--- NOTE | 2022-04-01 01:48 | NUR ---
IV SITE TO RIGHT AC INFILTRATED, CATHETER DC'D W/ TIP INTACT. SITE ELEVATED TO REABSORB FLUID. IV SITE TO LEFT AC LEAKING, SITE ALSO DC'D W/ CATHETER TIP INTACT. FLOAT NICOLE BROWN IN ROOM TO LOOK FOR NEW IV. PRIMARY NICOLE DE LA CRUZ IN ROOM FOR AM ASSESSMENT. CALL LIGHT IN REACH.
--- NOTE | 2022-04-01 02:03 | NUR ---
IN PT ROOM FOR ASSISTING PT TO BATHROOM AND ASSESSMENT. PT WEAK/UNSTEADY GAIT TO BATHROOM W/1PA. BARRIER CREAM PLACED TO BLANCHABLE REDNESS ON GLUTEAL FOLDS, NEW DEPENDS PROVIDED AT PT REQUEST. PT NOW RESTING BACK IN BED. REDNESS AND OPACITY W/SWOLLEN FOUND ON LEFT INNER BICEP, CONSULTED NANDA RIVERA AND ENVIRONMENTAL ADVISERNICOLE CHAWLA, IV REMOVED. INFILTRATION FOUND ON RFA, IV REMOVED. COBAN AND GAUZE IN PLACE ON REMOVED IV'S, BOTH ARMS ELEVATED WITH PILLOWS. NEW IV PLACED BY FLOAT NICOLE BROWN, PT TOLERATED WELL, CONTINUOUS IV FLUIDS RUNNING DIRECTED. NO ACUTE CHANGES FROM PREVIOUS ASSESSMENT. PT REPORTS NO PAIN, NAUSEA, N/T, DIZZINESS, OR SOB. CALL LIGHT WITHIN REACH, NO FURTHER NEEDS AT THIS TIME.
--- NOTE | 2022-04-01 03:00 | NUR ---
rounded on pt, pt resting in bed with eyes closed. on ra, rr even and unlabored, no distress noted. iv site wnl, fluids infusing as directed. call light in reach.
--- NOTE | 2022-04-01 07:40 | NUR ---
UNEVENTFUL NIGHT FOR PT. PT SLEPT MAJORITY OF THE NIGHT. DRESSINGS ON BOTH LEGS C/D/I BILAT. IV ON RT FA AND IV IN LFT AC REMOVED FOR INFILTRATION AND EDEMA, ELEVATED ON PILLOWS. NEW IV PLACED IN LFT HAND NEAR THUMB, FLUIDS RUNNING DIRECTED (SEE EMAR). NO PRN MEDS GIVEN. URINE OUTPUT QUANTITY SUFFICIENT. DESENEX POWDER TO GROIN AREA AND PANNUS. BARRIER CREAM TO GLUTEAL FOLDS. PT USES CALL LIGHT APPROPRIATELY. PT A&O X4. AM LABS PENDING.
--- NOTE | 2022-04-01 07:48 | NUR ---
PT RESTING IN ROOM. WHITE BOARD UPDATED. LEGS ELEVATED ONTO A PILLOW. CALL LIGHT IN REACH. NO FURTHER NEEDS AT THIS TIME.
--- NOTE | 2022-04-01 07:56 | NUR ---
PT RESTING EYES CLOSED AT TIME OF SHIFT REPORT. AWAKE NOW WATCHING TV. AGREES SHE IS COMFORTABLE AND READY FOR BREAKFAST. NEEDED ITEMS AT BEDSIDE.
--- NOTE | 2022-04-01 09:06 | NUR ---
PT UP TO RESTROOM WITH FWW AND SBA. PT NOW UP IN CHAIR BRUSHING TEETH. CALL LIGHT IN REACH. NO FURTHER NEEDS AT THIS TIME.
--- NOTE | 2022-04-01 09:39 | NUR ---
DR LANCE IN TO SEE PT DISCUSSES DC. PT STATES SHE IS READY AND WANTS TO GO HOME. ALL QUESTIONS ANSWERED
[2022-04-01] MEDS ORDERED: DOXYCYCLINE HY100 MG PO (09:43)
--- NOTE | 2022-04-01 10:35 | NUR ---
LLE DRESSING SOILED AT HEAL CHANGED PER MD ORDERS. REINFORCED WITH GAUZE AFTER MEDIHONEY AND ADAPTIC APPLIED. SOCKS APPLIED TO PROTECT DRESSING AND PREVENT SLIPPING. PT DOZING IN THE CHAIR LAST OF ABX INFUSING
== END 2022-04-01 11:46 | disposition home or self-care (01) | DRG 683 ==
LOC: ED 03:54 → MS 06:13
PROVIDERS: ADMIT Internal Medicine; ATTEND Internal Medicine
DX: N17.9 Acute kidney failure, unspecified (principal); L03.115 Cellulitis of right lower limb; L03.116 Cellulitis of left lower limb; Z20.822 Contact with and (suspected) exposure to COVID-19; I10 Essential (primary) hypertension; I89.0 Lymphedema, not elsewhere classified; S05.12XA Contusion of eyeball and orbital tissues, left eye, initial encounter; E78.00 Pure hypercholesterolemia, unspecified; I48.91 Unspecified atrial fibrillation; M25.511 Pain in right shoulder; E03.9 Hypothyroidism, unspecified; Z90.89 Acquired absence of other organs; Z98.890 Other specified postprocedural states; Z79.01 Long term (current) use of anticoagulants; W07.XXXA Fall from chair, initial encounter; Y92.009 Unspecified place in unspecified non-institutional (private) residence as the place of occurrence of the external cause
CPT/HCPCS: 36415; 70450; 72125; 73030; 80048; 80053; 83605; 83735; 85025; 85610; 87088; 87502; 90471; 90715; 96374; 96375; 99285-25; A9270; C9803; J1956; J2270; J3370; J7030; J7060; J7121; U0003

== ENCOUNTER 2022-04-05 11:12 | Inpatient (IN) | payer MEDICARE, OTHER ==
[~2022-04-05] VITALS: Ht 167.6 cm; Wt 84.0 kg
[~2022-04-05 11:12] MED LIST changes: +DOXYCYCLINE HY100 MG PO; +TYLENOL325 MG PO; +WARFARIN SODIUM2 MG PO
--- OUTSIDE RECORDS SUMMARY | 2022-04-05 11:19 | XMS ---
PreManage Notification: DAREK WITT [employer] Events No recent Security Events currently on file CRITERIA MET - [facility] - 2 Visits in 30 Days - 6 ED Visits in 6 Months CARE PROVIDERS Wanda Garrison Nurse Practitioner: Current PHONE: [phone] Rolo has no Care Guidelines for this patient. Joesph VISIT COUNT (12 MO.) 7 [facility] TOTAL 7 NOTE: Visits indicate total known visits. ED/C VISIT TRACKING (12 MO.) 04/05/2022 11:12 [facility] [place] TYPE: Emergency COMPLAINT: - LEG PAIN 03/30/2022 03:55 [facility] [place] TYPE: Emergency COMPLAINT: - FALL 01/25/2022 15:[address] [facility] [place] TYPE: Emergency COMPLAINT: - MULTIPLE COMPLAINTS 12/28/2021 10:36 [facility] [place] TYPE: Emergency COMPLAINT: - FALL DIAGNOSES: - halfway (current) use of anticoagulants - Contusion of other part of head, initial encounter - Allergy status to other drugs, medicaments and biological substances - Unspecified atrial fibrillation - Unspecified fall, initial encounter 12/25/2021 02:59 [facility] [place] TYPE: Emergency COMPLAINT: - FALL DIAGNOSES: - fish packer (current) use of anticoagulants - Other member services coordinator (current) drug therapy - Essential (primary) hypertension - Laceration without foreign body of other part of head, initial encounter - Unspecified fall, initial encounter - Allergy status to other antibiotic agents 12/19/2021 13:43 [facility] [place] TYPE: Emergency COMPLAINT: - SWELLING/BODY PART 11/29/2021 18:25 [facility] [place] TYPE: Emergency COMPLAINT: - LT FOOT PAIN DIAGNOSES: - Rash and other nonspecific skin eruption - Cellulitis of right lower limb - Venous insufficiency (chronic) (peripheral) - Essential (primary) hypertension INPATIENT VISIT TRACKING (12 MO.) 03/30/2022 06:13 [facility] [place] TYPE: Medical Surgical COMPLAINT: - CELLULITIS, LEUKOCYTOSIS DIAGNOSES: - Contusion of eyeball and orbital tissues, left eye, initial encounter - Lymphedema, not elsewhere classified - halfway (current) use of anticoagulants - Contact with and (suspected) exposure to COVID-19 - Pure hypercholesterolemia, unspecified - Fall from chair, initial encounter - Essential (primary) hypertension - Hypothyroidism, unspecified - Acute kidney failure, unspecified - Pain in right shoulder - Fall from chair, initial encounter - Essential (primary) hypertension - Contact with and (suspected) exposure to COVID-19 - Cellulitis of left lower limb - Other specified postprocedural states - Cellulitis of right lower limb - Other specified postprocedural states - Hypothyroidism, unspecified - Lymphedema, not elsewhere classified - Contusion of eyeball and orbital tissues, left eye, initial encounter - Unspecified place in unspecified non-institutional (private) residence as the place of occurrence of the external cause - Pure hypercholesterolemia, unspecified - Acquired absence of other organs - Acquired absence of other organs - Pain in right shoulder - Unspecified atrial fibrillation - Unspecified place in unspecified non-institutional (private) residence as the place of occurrence of the external cause - halfway (current) use of anticoagulants - Acute kidney failure, unspecified - Cellulitis of left lower limb - Unspecified atrial fibrillation 01/25/2022 22:00 [facility] [place] TYPE: Medical Surgical COMPLAINT: - ATRIAL FIBRILLATION, CELLULITIS DIAGNOSES: - Unspecified atrial fibrillation - Abnormal coagulation profile - Orthostatic hypotension - Allergy status to other antibiotic agents - Allergy status to other antibiotic agents - Non-pressure chronic ulcer of left heel and midfoot with fat layer exposed - Essential (primary) hypertension - Other specified postprocedural states - Hypothyroidism, unspecified - Unspecified atrial fibrillation - Other specified postprocedural states - Hypo-osmolality and hyponatremia - Pure hypercholesterolemia, unspecified - Cellulitis of left lower limb - Abnormal coagulation profile - Other member services coordinator (current) drug therapy - Contact with and (suspected) exposure to COVID-19 - Non-pressure chronic ulcer of left heel and midfoot with fat layer exposed - Type 2 diabetes mellitus with foot ulcer - fish packer (current) use of anticoagulants - halfway (current) use of anticoagulants - Hypothyroidism, unspecified - Other member services coordinator (current) drug therapy - Other specified bacterial [...] 2 diabetes mellitus with other skin complications 12/19/2021 16:14 [facility] [place] TYPE: Medical Surgical COMPLAINT: - ACUTE LEFT LOWER EXTREMITY SEVERE CELLULITIS DIAGNOSES: - Other specified postprocedural states - Pure hypercholesterolemia, unspecified - fish packer (current) use of antibiotics - Adverse effect of cephalosporins and other beta-lactam antibiotics, initial encounter - Cellulitis of left lower limb - Allergy, unspecified, initial encounter - Adverse effect of cephalosporins and other beta-lactam antibiotics, initial encounter - Other detention (current) drug therapy - Chronic atrial fibrillation, unspecified - Other specified postprocedural states - Hypothyroidism, unspecified - Chronic atrial fibrillation, unspecified - fish packer (current) use of anticoagulants - Hypothyroidism, unspecified - Essential (primary) hypertension - Elevated white blood cell count, unspecified - halfway (current) use of anticoagulants - halfway (current) use of antibiotics - Contact with and (suspected) exposure to COVID-19 - Pure hypercholesterolemia, unspecified - Essential (primary) hypertension - Other member services coordinator (current) drug therapy - Contact with and (suspected) exposure to COVID-19 [email or web address]
[2022-04-13] MEDS ORDERED: AMOX TR-K CLV1 EAC1 PO (10:28)
[2022-04-13] MEDS ORDERED: WARFARIN SODIUM5 MG PO (10:31)
== END 2022-04-13 12:05 | disposition home health service (06) | DRG 603 ==
LOC: ED 11:12 → MS 11:13
PROVIDERS: ADMIT Internal Medicine; ATTEND Internal Medicine
DX: L03.115 Cellulitis of right lower limb (principal); I48.21 Permanent atrial fibrillation; Z20.822 Contact with and (suspected) exposure to COVID-19; L03.116 Cellulitis of left lower limb; E78.5 Hyperlipidemia, unspecified; E03.9 Hypothyroidism, unspecified; S81.801A Unspecified open wound, right lower leg, initial encounter; S81.802A Unspecified open wound, left lower leg, initial encounter; I89.0 Lymphedema, not elsewhere classified; Z88.1 Allergy status to other antibiotic agents; X58.XXXA Exposure to other specified factors, initial encounter
CPT/HCPCS: 36415; 80048; 80053; 80202; 83605; 85025; 85060; 85610; 87040; 87070; 87075; 87205; 87502; 97110; 97166; A9270; J2543; J3370; J7060; U0003

== ENCOUNTER 2022-06-10 10:27 | Inpatient (IN) | payer MEDICARE, OTHER ==
[~2022-06-10] VITALS: Ht 167.6 cm; Wt 84.3 kg
[~2022-06-10 10:27] MED LIST changes: +AMOX TR-K CLV1 EAC1 PO
--- OUTSIDE RECORDS SUMMARY | 2022-06-10 10:34 | XMS ---
PreManage Notification: DAREK WITT Security Quality Associate Events No recent Security Events currently on file CRITERIA MET - 6 ED Visits in 6 Months CARE PROVIDERS Wanda Garrison-C Nurse Practitioner: Current PHONE: [phone] Rolo has no Care Guidelines for this patient. Joesph VISIT COUNT (12 MO.) 8 IFTIKHAR Robert TOTAL 8 NOTE: Visits indicate total known visits. ED/C VISIT TRACKING (12 MO.) 06/10/2022 10:27 [facility] [place] TYPE: Emergency COMPLAINT: - FALL 04/05/2022 11:12 [facility] [place] TYPE: Emergency COMPLAINT: - LEG PAIN 03/30/2022 03:55 [facility] [place] TYPE: Emergency COMPLAINT: - FALL 01/25/2022 15:29 [facility] [place] TYPE: Emergency COMPLAINT: - MULTIPLE COMPLAINTS 12/28/2021 10:36 [facility] [place] TYPE: Emergency COMPLAINT: - FALL DIAGNOSES: - Unspecified fall, initial encounter - alf (current) use of anticoagulants - Contusion of other part of head, initial encounter - Allergy status to other drugs, medicaments and biological substances - Unspecified atrial fibrillation 12/25/2021 02:59 [facility] [place] TYPE: Emergency COMPLAINT: - FALL DIAGNOSES: - Allergy status to other antibiotic agents - alf (current) use of anticoagulants - Other [place] [facility] (current) drug therapy - Essential (primary) hypertension - Laceration without foreign body of other part of head, initial encounter - Unspecified fall, initial encounter 12/19/2021 13:43 [facility] [place] TYPE: Emergency COMPLAINT: - SWELLING/BODY PART 11/29/2021 18:25 [facility] [place] TYPE: Emergency COMPLAINT: - LT FOOT PAIN DIAGNOSES: - Essential (primary) hypertension - Rash and other nonspecific skin eruption - Cellulitis of right lower limb - Venous insufficiency (chronic) (peripheral) INPATIENT VISIT TRACKING (12 MO.) 04/07/2022 12:53 [facility] [place] TYPE: Medical Surgical COMPLAINT: - CELLULITIS DIAGNOSES: - Hyperlipidemia, unspecified - Exposure to other specified factors, initial encounter - Cellulitis of right lower limb - Allergy status to other antibiotic agents - Permanent atrial fibrillation - Contact with and (suspected) exposure to COVID-19 - Lymphedema, not elsewhere classified - Permanent atrial fibrillation - Unspecified open wound, left lower leg, initial encounter - Lymphedema, not elsewhere classified - Unspecified open wound, right lower leg, initial encounter - Hypothyroidism, unspecified - Contact with and (suspected) exposure to COVID-19 - Hypothyroidism, unspecified - Unspecified open wound, left lower leg, initial encounter - Cellulitis of left lower limb - Cellulitis of left lower limb - Unspecified open wound, right lower leg, initial encounter - Exposure to other specified factors, initial encounter - Allergy status to other antibiotic agents - Hyperlipidemia, unspecified 03/30/2022 06:13 [facility] [place] TYPE: Medical Surgical COMPLAINT: - CELLULITIS, LEUKOCYTOSIS DIAGNOSES: - Unspecified atrial fibrillation - Unspecified place in unspecified non-institutional (private) residence as the place of occurrence of the external cause - 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 - Acute kidney failure, unspecified - Cellulitis of left lower limb - Unspecified atrial fibrillation - Contusion of eyeball and orbital tissues, left eye, initial encounter - Lymphedema, not elsewhere classified - 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 - Contact with [...] limb - Other specified postprocedural states - Lymphedema, not elsewhere classified - Hypothyroidism, unspecified - Contusion of eyeball and orbital tissues, left eye, initial encounter - Unspecified place in unspecified non-institutional (private) residence as the place of occurrence of the external cause - Pure hypercholesterolemia, unspecified - Acquired absence of other organs - Acquired absence of other organs - Pain in right shoulder 01/25/2022 22:00 [facility] [place] TYPE: Medical Surgical COMPLAINT: - ATRIAL FIBRILLATION, CELLULITIS DIAGNOSES: - Hyperkalemia - Type 2 diabetes mellitus with foot ulcer - Contact with and (suspected) exposure to COVID-19 - Other specified bacterial agents as the cause of diseases classified elsewhere - Hypo-osmolality and hyponatremia - Essential (primary) hypertension - Type 2 diabetes mellitus with other skin complications - Abnormal coagulation profile - Unspecified atrial fibrillation - Orthostatic hypotension - Allergy status to other antibiotic agents - Allergy status to other antibiotic agents - Non-pressure chronic ulcer of left heel and midfoot with fat layer exposed - Essential (primary) hypertension - Other specified postprocedural states - Hypothyroidism, unspecified - Unspecified atrial fibrillation - Pure hypercholesterolemia, unspecified - Other specified postprocedural states - Hypo-osmolality and hyponatremia - Cellulitis of left lower limb - Abnormal coagulation profile - Non-pressure chronic ulcer of left heel and midfoot with fat layer exposed - [facility] [place] [facility] (current) drug therapy - Contact with and (suspected) exposure to COVID-19 - Type 2 diabetes mellitus with foot ulcer - alf (current) use of anticoagulants - Hypothyroidism, unspecified - 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 [place] TYPE: Medical Surgical COMPLAINT: - ACUTE LEFT LOWER EXTREMITY SEVERE CELLULITIS DIAGNOSES: - Pure hypercholesterolemia, unspecified - Essential (primary) hypertension - Other [place] [facility] (current) drug therapy - Contact with and (suspected) exposure to COVID-19 - Other specified postprocedural states - Pure hypercholesterolemia, unspecified - alf (current) use of antibiotics - Adverse effect of cephalosporins and other beta-lactam antibiotics, initial encounter - Cellulitis of left lower limb - Allergy, unspecified, initial encounter - Adverse effect of cephalosporins and other beta-lactam antibiotics, initial encounter - Other [place] [facility] (current) drug therapy - Chronic atrial fibrillation, unspecified - Other specified postprocedural states - Hypothyroidism, unspecified - Chronic atrial fibrillation, unspecified - 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
--- NOTE | 2022-06-10 14:35 | NUR ---
PT TO FLOOR WITH NICOLE YAN. PT ABLE TO PIVOT TO BED WITH 2 PERSON ASSIST. LEGS WEEPING, PLACED ON CHUCKS. PT DENIES PAIN. TELE #6 PLACED. TACHY, AFIB. HR HIGH 90'S, LOW 100'S.
[2022-06-10] MEDS ORDERED: POTASSIUM CHLO10 ME1 PO (15:56)
--- NOTE | 2022-06-10 16:42 | NUR ---
Patient to the medical floor. Patient alert to self, place and situation. Patient reports chronic knee pain bilat. Unna boots intact to legs, weeping noted to posterior dressings. Patient oriented to room and call light. Vital signs stable at this time. Bed alarm intact.
--- NOTE | 2022-06-10 16:50 | EKG ---
[facility] [address] [facility] [place] [address] Signed Atrial fibrillation Septal infarct , age undetermined ST \T\ T wave abnormality, consider lateral ischemia Abnormal ECG When compared with ECG of 25-JAN-2022 20:36, Septal infarct is now present Confirmed by Lefty Whitehead MD () on 06/10/2022 4:50:06 PM Electronically Signed By: LEFTY WHITEHEAD MD 06/10/22 1650 PATIENT NAME: DAREK WITT Electrocardiogram DATE OF : 36 PHYSICIAN: LEFTY WHITEHEAD MD REPORT #: [id number] REPORT IS CONFIDENTIAL AND NOT TO BE RELEASED WITHOUT AUTHORIZATION
--- NOTE | 2022-06-10 17:53 | NUR ---
medications reconciled. Warfarin dosed per pharmacy. Patient has possible allergy to cefazolin but will have trial of cefepime for pseuudomonas infection
--- NOTE | 2022-06-10 19:08 | NUR ---
REPORT RECEIVED FROM NICOLE THRASHER. PT RESTLESS IN BED SITTING UP AND LAYING BACK DOWN. PT REQUESTING LEG TO BE ELEVATED. NICOLE THRASHER PLACED PILLOW UNDER BLE. INFORMED PT THIS RN WOULD BE BACK TO SEE HER LATER PT STATE "OKAY, IF I AM NOT HERE THEN I WENT HOME. DO YOU WANT MY PHONE NUMBER?" NICOLE THRASHER INFROMED PT THAT SHE WOULD BE STAYING THE NIGHT IN THE HOSPITAL. PT STATES "OH OKAY." PT REPORTS NO OTHER NEEDS AT THIS TIME. CALL LIGHT IN REACH. BED ALARM ON.
--- NOTE | 2022-06-10 21:30 | NUR ---
IN ROOM TO COMPLETE VITALS. PT LAYING IN BED WITH EYES CLOSED RR EVEN AND UNLABORED. PT AROUSABLE WITH LIGHT PRESSURE TO STERNUM, PT KEEPS EYES CLOSED WHILE ANSWERING QUESTIONS. PT A&O TO PLACE, TOWN AND SELF. ASSESSMENT COMPLETE. LUNG SOUNDS CLEAR IN RUL AND MARVIN. DIMINISHED IN RLL AND LLL. SOME CRACKLES HEARD IN RLL. BOWEL TONES ACTIVE. HEART TONES IRREGULAR. EDEMA NOTED TO BLE. DRESSINGS TO BLE INTACT, BUT SEEPING YELLOW TINGED FLUID ONTO VIOLET PAD. REDNESS NOTED TO PANUS, GROIN AREA, BILATERAL KNEES. SKIN FRAGILE. IV INFUSING WNL. PT RESTING IN BED WITH EYES CLOSED. WHEN ASKED IF PT IS HAVING PAIN PT STATES "NO I AM FINE." WHEN ASKED IF PT NEEDS TO USE THE RESTROOM PT STATES "NO" NO OTHER NEEDS IDENTIFIED AT THIS TIME. CALL LIGHT IN REACH. BED ALARM ON.
--- NOTE | 2022-06-10 22:35 | NUR ---
IN ROOM TO ROUND ON PT. PT MOVING AROUND IN BED WITH EYES CLOSED RR EVEN AND UNLABORED. WHEN ASKING PT IF PT KNOWS WHERE SHE IS PT STATES "THE BANK" REORIENTED PT THAT SHE IS AT [facility], PT STATES "OH THAT IS RIGH, YOU ARE RIGHT." PT CONTINUES TO LEAVE EYES CLOSED AND MOVE AROUND IN BED. WHEN ASKED IF PT HAS ANY PAIN PT STATES "YES" PT UNABLE TO STATE A PAIN SCALE RATING WHEN ASKED, RATHER PT STATES "19.." AND TRAILS OF. PT THEN STATES "I'M JUST SNOOZING AWAY." WHEN ASKED IF PT WANTS ANYTHING FOR PAIN PT STATES "NO." PT CONTINUES TO HAVE EYES CLOSED AND RESTING ON LEFT SIDE WITH HEAD ON PILLOW BETWEEN BED RAIL. BED ALARM ON. PT STATES SHE "WANTS TO SLEEP." NO OTHER NEEDS IDENTIFIED AT THIS TIME. CALL LIGHT IN REACH.
--- NOTE | 2022-06-10 22:52 | NUR ---
THIS RN CALLED MED/SURG CHARGE BOB RIVERA TO DISCUSS PT TACHYCARDIA AND HOME MEDICATIONS AT THIS TIME. BOB RIVERA SAID SHE WOULD FOLLOW UP.
--- NOTE | 2022-06-10 23:00 | NUR ---
CCU NOTIFIED OF HR ON TELE, TACHY UP TO 120S. MD PHONED, NOTIFIED OF pt'S HR, BP. MD TO ENTER NEW ORDERS.
--- NOTE | 2022-06-10 23:05 | NUR ---
THIS RN NOTIFIED BY NICOLE ROJAS THAT NICOLE ROJAS TALKED WITH AND NEW ORDERS ARE PUT IN. INFORMED TO START WITH ONE OF THE MEDICATIONS AND RECHECK BP AND THEN ADMINISTER OTHER MEDICATION SO LONG BP IS WITHIN PARAMATERS.
--- NOTE | 2022-06-10 23:22 | NUR ---
IN TO ADMINISTER MEDICAITON, SEE MAR. PT SITS UP IN BED. PT SWALLOWS SIP OF WATER AND THEN TAKES PO MEDICATION WITH NO ISSUES. PT REQUESTING TOILETING. SCOTTY TREVIZO IN TO ASSIST. LIQUID BM AND URINE OUTPUT NOTED. 2PA WITH FWW BACK TO BED. BLE ELEVATED ON PILLOW. NO OTHER NEEDS IDENTIFIED AT THIS TIME. CALL LIGHT IN REACH. BED ALARM ON. PT RESTING IN BED WITH EYES CLOSED. RR EVEN AND UNLABORED.
--- NOTE | 2022-06-11 00:01 | NUR ---
IN TO RECHECK BLOOD PRESSURE, SEE VITALS. 0012 MEDICAITON ADMINISTERED, SEE MAR. PT REPORTS NO OTHER NEEDS AT THIS TIME. CALL LIGHT IN REACH. BED ALARM ON.
--- NOTE | 2022-06-11 01:59 | NUR ---
PRIMARY RN NOTIFIED RE VITAL SIGNS.
--- NOTE | 2022-06-11 04:31 | NUR ---
PT HAS BEEN AWAKE, SOMEWHAT RESTLESS, GRABBING AT LEGS. WHEN ASKED IF HER LEGS HURT SHE STATES "YES THEY SURE DO". PRN TYLENOL GIVEN WHICH PT SWALLOWS WITHOUT DIFFICULTY.
--- NOTE | 2022-06-11 05:44 | NUR ---
IN TO ROUND ON PT. PT SITTING UP IN BED PULLING AT LLE DRESSING. SCOTTY MCDONALD IN TO ASSIST WITH TOILETING. 2PA WITH FWW FROM BED TO BSC. NO OUTPUT NOTED. 2PA FROM BSC BACK TO BED. REDDEND AREA TO COCCYX NOTED. BARRIER CREAM APPLIED. VITALS COMPLETE. ASSESSMENT COMPLETE. WHEN ASKING PT WHAT THE DATE IS PT STATES "June" WHEN ASKING PT IF SHE KNOWS WHERE SHE IS PT STATES "IN [place], [place]. IN MY HOME." INFORMED PT THAT IT IS May AND THAT SHE IS AT [facility]. PT STATES "OH THAT IS RIGHT." PT A&O TO SELF. ASSESSMENT COMPLETE. LUNG SOUNDS CLEAR IN RUL, MARVIN AND LLL. DIMINISHED IN RLL. BOWEL TONES ACTIVE. HEART RATE/RHYTHM IRREGULAR. LAB IN TO DRAW LABS. PTs LEFT EYE LID MILD EDEMA NOTED. BLADDER SCAN PT. BLADDER SCAN RECORDS 162ML. PT STATES "MY LEGS ARE NOT SO MUCH SHAKEY, THEY HURT." BLE ELEVATED WITH PILLOW. PT CLOSES EYES. PT RESTING IN BED WITH EYES CLOSED. RR EVEN AND UNLABORED. NO OTHER NEEDS IDENTIFIED AT THIS TIME. CALL LIGHT IN REACH. BED ALARM ON.
--- NOTE | 2022-06-11 06:29 | NUR ---
IN TO ADMINISTER MEDICATION, SEE MAR. IV SITE TO RIGHT WRIST REDDEND. LEFT AC IV DRESSING CHANGED DRESSING WAS PEELING OFF. RIGHT WRIST IV REMOVED. NEW IV STARTED IN RIGHT FOREARM. IV ABX STARTED IN RIGHT FOREARM IV AND INFUSING WNL. PT TOLERATED IV START WELL. PT REPORTING PAIN 6/10 IN BLE. PT LEANS UP IN BED AND REACHES TOWARDS DRESSINGS. BLE ELEVATED ON PILLOW. PT LAYS BACK DOWN IN BED AND CLOSES EYES. RR EVEN AND UNLABORED. NO OTHER NEEDS IDENTIFIED AT THIS TIME. CALL LIGHT IN REACH. BED ALARM ON. THIS RN TO CALL MD TO ASK ABOUT SOMETHING ELSE FOR PAIN.
--- NOTE | 2022-06-11 07:14 | NUR ---
THIS RN CALLED DR. WHITEHEAD REGARDING PTs LOW URINE OUTPUT AND INCREASED PAIN IN LEFT LOWER EXTREMITY. MD AWARE. STATES HE WILL BE TO THE FLOOR SOON AND PUT IN NEW ORDERS.
--- NOTE | 2022-06-11 07:16 | NUR ---
REPORT RECEIVED FROM NICOLE RODRIGUEZ. PT AWAKE AND ALERT. RESTING IN BED IN SEMIFOWLER POSITION. PT REPORTS 7/10 PAIN TO "RIGHT SIDE OF MY LEFT LEG." PT DENIES ADDITONAL REQUESTS OR COMPLAINTS. REPORTS DRY MOUTH, ENCOURAGED TO DRINK FLUIDS AT BEDSIDE. DR WHITEHEAD CALLED AND UPDATED REGARDING VOIDIGN STATUS, PAIN, AND WOUND CONSULTATION BY NICOLE RODRIGUEZ. AWAITING NEW ORDERS. CALL LIGHT WITHIN REACH. BED RAILS UP. BED ALARM ON.
--- NOTE | 2022-06-11 08:50 | NUR ---
MORNING ASSESSMENT AND MEDICAITON DUE. PT RESTING IN BED. APPERAS AGITATED. PT REPORTS 6/10 PAIN IN BILATRAL LOWER EXTREMITIES. PRN PAIN MEDICATION GIVEN. PT DENIES NAUSEA. IV TO RIGHT AC LEAKING WITH FLUSH. DC'D PER PROTOCOL. GAUZE AND COBAN APPLIED. PT ALERT AND OREINTED TO ALL BUT EXACT DATE. SLURRED SPEACH NOTED, WORSE AT TIMES. PT UNABLE TO REPORT WHEN SLURRED SPEACH STARTED. PT UNABLE TO RECALL IF SHE HAS HAD A STROKE IN THE PAST. RIGHT SIDE WEAKER THAN LEFT. PT HAS DIFFICULTY PUSHING AGAINST RESISTANCE IN BOTH HANDS AND LEGS. PT IS ABLE TO KEEP ARMS ELEVATED BUT NOT LEGS, REPORTS LEGS ARE "TOO HEAVY." FACIAL SYMETRY EQUAL BILATERALLY. PT REPORTS SENSATION EVEN IN TOES ARE INTACT,PT IS ABLE TO ITENTIFY TOES THAT ARE TOUCHED. PT HAS TROUBLE FINDING WORDS AT TIMES. IS ABLE TO EXPRESS NEEDS AND THOUGHTS WITH TIME. PT UP WITH 2 PERSON ASSIST AND FWW UP TO COMODE. PT VOIDS 25ML DARK YELLOW URINE. MD AWARE OF LOW URINE OUTPUT. DENNIS CARE DONE. PT UP TO CHAIR. LUNG SOUNDS CLEAR. HEART TONES REMAIN IRREGULAR, AFIB RYTHM CONTINUES ON MONITOR WITH HR IN THE 90-110'S. GROSS GENERALIZED EDEMA TO BLE. ABDOME SOFT AND NON TENDER. BOWEL TONES ACTIVE. UNABOOTS TO BILATERAL LOWER EXTRMITIES LEAKIGN LARGER AMOUNTS OF SEROUS ANGUINOUS FLUID. CHUCX UNDER LEGS VERY WET. MICHELLE BOOTS REMOVED. PHTOGRAPHS TAKEN. MULTIPLE IRREGULAR WOUNDS (SEE PHOTOGRAPHS). WOUNDS UNSTABLE WITH SWELLING, REDNESS, PEELING, AND UNSTABLE ESCHAR. PT UP TO SHOWER WITH 2 PERSON ASSIST. PT REPORTS SHE CANNOT REMEMBER THE LAST TIME SHE HAD A SHOWER "MAYBE WHEN I WAS HERE LAST." SCOTTY AND GRAY, WORKING WITH PT IN THE SHOWER. NO ADDITIONAL NEEDS AT THIS TIME. CHARGE NURSE AND MD UPDATED. CALL BENJIE SMITH.
--- NOTE | 2022-06-11 10:02 | NUR ---
JEFE THE NURSE AND I GAVE PATIENT A SHOWER. I WASHED THE TOP HALF AND SHE WASHED THE LEGS. ALSO WASHED HER HAIR AND BRAIDED IT. WE USED A SHOWER CHAIR. PATIENT IS SITTING UP IN HER CHAIR. SHE HAS WARM BLANKETS ON.
--- NOTE | 2022-06-11 10:13 | NUR ---
THIS RN TO ROOM TO CHECK ON PT. PT UP TO CHAIR. RESTING WITH EYES CLOSED. BILATERL LEGS ELEVATED IN CHAIR AND ON PILLOW COVERD WITH CHUX. PT ALLOWED TO REST AT THIS TIME. CALL LIGHT WITHIN REACH.
--- NOTE | 2022-06-11 10:57 | NUR ---
WALKED BY PATIENT WAS SLEEPING IN HER CHAIR.
--- NOTE | 2022-06-11 11:16 | NUR ---
THIS RN TO ROOM TO CHECK ON PT. PT REMAINS UP TO CHAIR. LEANING ON BEDSIDE TABLE SLEEPING. PILLOWS PROVIDED AND PT SUPPORTED FOR BETTER MUSCULAR SKELETAL DYNAMICS. PT AWAKENS TO VOICE BUT DRIFTS QUICLY BACK TO SLEEP. PT UNABLE TO RATE PAIN IN LEGS AT THIS TIME DUE TO FALLING ASLEEP QUICKLY. FLACC SCORE OF 0/10. PT ALLOWED TO CONTINUE RESTING. NO ADDITIONAL REQUESTS OR COMPLAINTS. CALL LIGHT WITHIN REACH.
--- NOTE | 2022-06-11 11:32 | NUR ---
THIS RN TO ROOM WITH DR. WHITEHEAD FOR ROUNDS. PT AWAKENS AND FOWLLOW DIRECTIONS. PT REPORTS PAIN IS WELL CONTROLLED. PT DENIES NAUSEA. PT VERBALIZES UNDERSTANDING OF PLAN OF CARE AND STATES HER QUESTIONS HAVE BEEN ANSWERED. NO ADDITIONAL REQUESTS OR COMPLAINTS. CALL BENJIE SMITH.
--- NOTE | 2022-06-11 12:30 | NUR ---
HOULRY ROUDING. PT CONTINUES RESTING WITH EYES CLOSED. PT AWAKENS TO VOICE AND TOUCH. PT AGREES TO GET UP TO COMODE. WEAKNESS CONTINUES. PT HAS TROUBLE STAYING AWAKE WITH TRANSFER. SLURRED SPEACH CONTINUES. RIGHT SIDED WEAKNESS CONTINUES. PT UP TO BEDSIDE COMODE WITH 2PERSON ASSIST, AMBULATION DIFFICULT, PIVOT TRANSFER. RECCOMDENING CORBIN STEADY FOR NOW FOR TRANSFERS. PT VOIDS 200ML DARK YELLOW URINE. DENNIS CARE DONE DPENDS CHANGED. 2 PERSON ASSIST BACK TO BED. PTS DAUGHTER, MARCELLUS, CALLED AND EXPRESSES CONCERNS FOR PTS SLURRED SPEACH WELL. DR WHITEHEAD CALLED AND UPDATED. NEW ORDERS FOR CT SCAN GIVEN/ENTERED. NO ADDITIONAL NEW ORDERS AT THIS TIME. 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 NIH SCORE OF 9 ALTHOUGH NOTED THAT PTS WEAKNESS TO BILATERAL LEGS IS ONGING. NO ADDITIONAL NEEDS AT THIS TIME. AWATING CT SCAN. CALL LIGHT WITHIN REACH. PT CONTINUES FEEDING SELF LUNCH.
--- NOTE | 2022-06-11 13:31 | NUR ---
PT UP TO WHEELCHAIR WITH 2 PERSON ASSIST AND CORBIN STEADY. TRANFER MUCH MORE SMOOTH WITH CORBIN STEADY. PT TO CT WITH NICOLE CASTELLANO.
--- NOTE | 2022-06-11 14:00 | NUR ---
AFTERNOON ASSESSMENT DUE. PT RETURNED FROM CT SCAN. PT TRANSFERED BACK TO BED WITH CORBIN STEADY. PT DENIES PAIN AND NASUEA EVEN WITH TRANSFER. PT OREINTED TO PLACE, YEAR AND EVENTS. PT REMAINS DISORIENTED TO DAY AND MONTH. PT CONTINUES TO HAVE OCCATIONAL TROUBEL WTIH FINDING WORDS AND WIHT MEMORY. FOR EXAMPLE PT STATES "DO I HAVE KITTIES OR DOGS?" PTS ANSWERES PTS QUESTIONS. NIH SCORE UNCHANGED. LUNG SOUNDS CLEAR. HEART TONES REMAIN IRREGULAR WITH RATE IN THE 90'S BY APICAL PULSE. DIFUSE GENERALIZED EDEMA TO BLE UNCHNAGED. MOIST GUAZE PRESENT IN LAREG WOUND BEDS. LEGS OTHERWISE REMAIN OPEN TO AIR PENDING EVALUATION FROM DR. JADE. MODERATE AMOUNTS OF SEROUSANGUINOUS AND YELLOW FLUID CONTINE TO DRAIN FROM LEGS. LEGS OTHERWISE UNCHANGED. SEE PHOTOGRAPHS. PT REPORTS SENSATION TO BEL IS INTACT. URINE OUTPUT REMAINS LOW. AWARE, TEA AND WATER PROVIDED/ENCORUAGED. PTS REMAINS AT BESIDE. PT TENDS TO LIST TO THE LEFT SIDE IN BED, SUPPORTED WITH PILLOWS. NO ADDITIONAL REQEUSTS OR COMPLAINTS. CALL LIGHT WITHIN REACH. BED RAILS UP.
--- NOTE | 2022-06-11 15:05 | NUR ---
HOURLY ROUNDING: PT RESTING IN BED WITH EYES CLOSED. PT LISTING TO THE LEFT. PILLOWS ADDED TO SUPPORT PTS NECK. PT AWAKENS TO MOVEMENT. PT DENIES PAIN AND NAUSEA. PT DENIES ANY REQUESTS OR COMPLAINTS. CALL LIGHT WITHIN REACH. BED RAILS UP. AT BEDSIDE.
--- NOTE | 2022-06-11 16:10 | NUR ---
MEDICATION DUE. PT RESTING IN BED IN SEMIFOWLER POSITION WITH HEAD OF BED AT 30 DEGREES. FEET ELEVATED. PT LEANING TO LEFT SIDE, SUPPORTED WITH PILLOWS. PT OPENES EYES TO TOUCH AND VOICE BUT QUICKLY FALLS BACK TO SLEEP. PT STIMULATED TO KEEP EYES OPEN AND TAKES A SIP OF WATER WELL HER MEDICATION. PT DENIES PAIN AND NAUSEA. NO ADDITIONAL NEEDS. PT QUICKLY DRIFTS BACK TO SLEEP. CALL LIGHT WITHIN REACH. BED RAILS UP.
--- NOTE | 2022-06-11 16:10 | NUR ---
Spoke with Kareen. She lives in a house with few steps with her spouse. He spouse is very hard of hearing. Pt has many admissions to the hospital following falls and for bilat cellulitis of the lower extremities. I spoke with her spouse Andres today and asked if he would agree for Kareen to go to a SNF on [place] this time for wound care and therapy. , Andres also agrees, only if pt agrees. Chart was faxed to [facility] by Elvis LEE
--- NOTE | 2022-06-11 16:38 | NUR ---
PT HERE FOR HYERKALEMIA. PT UP WITH 2 PERSON ASSIST AND FWW THIS MORNING AND HAS A LOT OF TROUBLE MOVING HER LEGS. PT TRANSITIONED TO CORBIN STEADY USE. PT TOLERATING REGULAR DIET WITH MODERATE APPITITE. TELEMETRY MONITORING DC'D THIS SHIFT, PT REMAINED IN A-FIB RYTHEM PER BASELINE, WARFARIN GIVEN. DRESSINGS TO BLE REMOVED THIS MORNING. MULTIPLE WOUNDS, SEE PHOTOGRAPHS. PT VERY DIRTY AND REPORTS HER LAST SHOWER WAS MONTHS AGO. SHOWER THIS SHIFT. AWAITING DR JADE CONSULTATION TO REDRESS WOUNDS. SLURRED SPEACH NOTED BY THIS RN AND PTS DAUGHTER THIS SHIFT, CT SCAN PERFORMED. PRN NORCO GIVEN FOR BLE PAIN. PT VERY DROWSY THROUGHOUT SHIFT AND HAS TROUBLE STAYING AWAKE. PT IS NTO VOIDING MONIQUE BERNAL MD AWARE. MONITORING LABS. PT DOES NOT USE CALL LIGHT OR MAKES NEEDS KNOWN.
--- NOTE | 2022-06-11 18:08 | NUR ---
DR JADE TO BEDSIDE FOR DRESSING APPLICATION AND ROUNDS. PT UP TO RESTROOM WITH 2 PERSON ASSIST AND CORBIN STEADY. PT HAS TROUBLE FOLLOWING DIRECTIONS AT TIMES. BECOMES EASILY CONFUSED. PT VOIDS, MISSED THE HAT, UNMEASURED. DENNIS CARE DONE. DEPENDS CHANGED. PT UP TO CHAIR FOR DRESSING APPLICATION. OLD DRESSINGS REMOVED. NEW DRESSINGS APPLIED BY DR JADE FOLLOWS: WOUNDS CLEANSED WITH HIBACLEANSE SOLUTION. XEROFORM APPLIED OVER LARGE WOUND AREAS. BACETRACIN APPLIED TO HEEL WOUNDS FOLLOWED BY 4X4 GAUZE. ABD PADS APPLIED OVER LARGE WOUND AREAS. ABD PADS APPLIED OVER AREAS THAT SHOW THE MOST DRAIANGE AT BACK OF LEGS BILATERALLY. LEGS WRAPPED IN KERLIX GAUZE FOLLOWED BY COBAN. ADDITONAL PIECE OF COBAN APPLIED. OVER HEAL LIKE A STYRUP. VERBAL ODERS GIVEN TO REPEAT THIS DRESSING CHANGE EVERY SHIFT STARTING TOMORROW MORNING. ORDERS ENTERED. PT REMAINS UP TO CHAIR FOR DINNER. PT FEEDING SELF. PT DENIES PAIN AND NAUSEA AND TOLERATED DRESSING CHANGE WELL. NO ADDITIONAL REQUESTS OR COMPLAINTS. CALL LIGHT WITHIN REACH.
--- NOTE | 2022-06-12 03:00 | NUR ---
pt HEARD MOVING IN BED, CHECKED ON pt. 2PA WITH CORBIN STEADY TO BSC FOR VOID AND BACK TO BED. ASSISTED pt TO REPOSITION, PILLOWS UNDER ARMS, LEGS ELEVATED. BED ALARM ON. DRINKS OF WATER PROVIDED.
--- NOTE | 2022-06-12 04:18 | NUR ---
pt lying in bed resting quietly at this time. resp even et unlabored. able to make needs known. pt remains forgetful at times. pt c/o back pain and pain to left heel pt given prn pain med and left heel elevated. pt given back massage to help eleviate pain to back. no acute distress noted at this time.
--- NOTE | 2022-06-12 06:51 | NUR ---
pt SKIN RED, COMPLAINS OF FEELING ITCHY, SCRATCHING BACK, LEGS. ANTIBIOTIC STOPPED AT THIS TIME. PRIMARY RN TONI NOTIFIED. IV PLACED TKO WITH NEW TUBING.
--- NOTE | 2022-06-12 06:55 | NUR ---
REPORT RECEIVED FROM CESAR, RNS. PT RESTING IN BED. PT REPORTS FEELING ITCHY. PT NOTED TO BE FLUSHED/REDDENED FROM HEAD TO TOE. DR LANCE CALLED. NEW ORDERS GIVEN FOR IV BENADRYL. ORDERS ENTERED, REPEAT BACK PERFORMED. AWAITING MEDCIATION VERIFICATION.
--- NOTE | 2022-06-12 07:04 | NUR ---
IV BENADRYL GIVEN. PT CONTINUES TO REPORT ITCHING FROM HEAD TO TOE. IV REMAINS ON TKO WITH NORMAL SALINE PER ORDER FROM DR LANCE. MADELINE JIMENEZ TO BEDSIDE FOR DRESSING CHANGE TO BILATERAL LEGS. SWELLING IMROVED, REMAINS GENERAZLIED. WOUNDS IMPROVING. NEW PHOTOGRAPHS TAKEN, SEE PHOTOGRAPHS ON CHART FOR WOUND STATUS. NEW DRESSING APPLIED BY DR. JIMENEZ FOLLOWS: WOUNDS CLEANSED WITH HIBACLEANSE SOLUTION. XEROFORM APPLIED OVER LARGE WOUND AREAS. BACETRACIN APPLIED TO HEEL WOUNDS FOLLOWED BY 4X4 GAUZE. ABD PADS APPLIED OVER LARGE WOUND AREAS. ABD PADS APPLIED OVER AREAS THAT SHOW THE MOST DRAIANGE AT BACK OF LEGS BILATERALLY. LEGS WRAPPED IN KERLIX GAUZE FOLLOWED BY COBAN. ADDITONAL PIECE OF COBAN APPLIED. OVER HEAL LIKE A STYRUP. LEGS ELEVATED ON BLANKETS. PT REPORTS PAIN IS "A LOT BETTER" NOW 07/27. PT DENIES NEED FOR ADDITIONAL PAIN MEDICATION. PT REPORTS ITCHING HAS ALSO IMPROVED. NURSES MEDICAL ASSISTANTS PHLEBOTOMISTS AT BEDSIDE FOR MORNING CARES. CALL LIGHT WITHIN REACH. BED RAILS UP.
--- NOTE | 2022-06-12 07:50 | NUR ---
DR LANCE CALLED WITH BLOOD CUTLTURE RESTULS AND WITH UPDATE REGARDING PTS HEART RATE AND MEDICATION THAT WAS HELD LAST NIGHT. ORDERS GIVEN TO GIVE METOPROLOL AND DILTIAZEM DOES THAT WERE HELD LAST NIGHT. PHARMACY CALLED AND MEDICAITON ORDERS ADJUSTED. NO ADDITIONAL NEW ORDERS GIVEN REGARDING POSITIVE BLOOD CULTURES.
--- NOTE | 2022-06-12 08:00 | NUR ---
THIS MORNING BEFORE GETTING HER OUT OF BED SHE WASHED HER OWN FACE AND BRUSHED HER TEETH. THAN STUDENT NURSE AND I GOT HER UP SHE SAT ON THE SIDE OF THE BED. THAN WE USED THE CORBINJemima JIMENEZ TO TRANFER HER TO THE CHAIR. PUT HER FEET UP AND PUT A VIOLET AND TWO BATH BLANKETS UNDER EACH LEG.
--- NOTE | 2022-06-12 08:28 | NUR ---
MORNING ASSESSMENT DUE. PT UP TO CHAIR, TRANSFERED BY SCOTTY LOPEZ USING CORBIN STEADY. PT FEEDING SELF BREAKFAST. PT REPORTS ITCHING HAS RESOLVED. REDNESS VERY MUCH IMPROVED. MINIMAL REDNESS NOTED TO CHEEKS AND CHEST. PT REPORTS FEELING "MUCH BETTER." PT REPORTS 3/10 PAIN IN BLE AND LEFT HEEL. PT DENIES NEED FOR PAIN MEDICAITON AT THIS TIME. IV ASSESSED, WNL. NEW IV ABX STARTED (SEE JUL). PT ORIENTED TO ALL BUT EXACT DATE. PT ABLE TO RECALL EVENTS OF THE MORNING. SLURRED SPEACH CONTINUES, MINIMAL THIS MORNING. PT REPORTS HER SPEACH SEEMS "FINE." STRENGTH ASSESSMENT UNCHNAGED. NO FACIAL ASYEMTRY NOTED. LUNG SOUNDS CLEAR. HEART TONES IRREGULAR, APICAL PULSE OF 112. MEDICATION RECENTLY GIVEN (SEE MAR), BY NICOLE SMITH. FRESH DEPENDS IN PLACE. URINE OUTPUT REMAINS INADAQUATE, MD AWARE. MICONAZOLE POWDER APPLIED UNDER PANNUS AND TO DENNIS AREA. WOUNDS TO BLE UNCHANGED. DRESSINGS C/D/I. SHOWER PLANNED FOR BEFORE DRESSING CHNAGE THIS EVENING. NO ADDITIONAL NEEDS AT THIS TIME. CALL LIGHT WITHIN REACH. PT WORKING WITH OCCUPATIONAL THERAPY.
--- NOTE | 2022-06-12 09:45 | NUR ---
THIS RN TO ROOM TO CHECK ON PT. PT RESTING WITH EYES CLOSED. REMAINS UP TO CHAIR. PT SUPPORED WITH PILLOWS ON LEFT SIDE. RESPIRATIONS EVEN AND UNLABORED. PT ALLOWED TO REST. CALL LIGHT WITHIN REACH. LEGS ELEVATED.
--- NOTE | 2022-06-12 10:10 | NUR ---
SPOKE TO DAREK ABOUT THE POSSIBILITY OF GOING TO A SNIF. PATIENT SAYS SHE IS THINKING ABOUT SNIF SINCE HER RECENTLY HAD A FALL AT HOME. PATIENT STATES HER WILL BE HERE AT 1300 TO VISIT HER. CASE MANAGEMENT WILL TALK WITH THE PATIENT'S WHEN HE COMES TO THE HOSPITAL TODAY.
--- NOTE | 2022-06-12 10:35 | NUR ---
HOURLY ROUNDING: PT REMAINS UP TO CHAIR. PT REPORTS SHE WAS TALKING WITH FRIENDS ON THE PHONE. PT DENIES PAIN AND NAUSEA. PT REPORTS NEED TO USE THE RESTROOM. PT UP TO RESTROOM WITH CORBIN DIAZ. PT VOIDS WITHOUT ISSUE, MISSES THAT HAD, UNMEASURED VOID. DENNIS CARE DONE. DEPENDS CHANGED. CORBIN STEADY BACK TO CHAIR. IV REMAINS WNL, NO S/S OF PHLEBITIS NOTED. PT DENIES ADDITIONAL REQQUESTS OR COMPLAINTS. CALL LIGHT WITHIN REACH.
--- NOTE | 2022-06-12 11:28 | NUR ---
THIS RN TO ROOM TO CHECK ON PT. PT REMAINS UP TO CHAIR. PT REPORTS HER HEAD IS ITCHING "BECUASE I NEED MY ALLERTY SHOT." PT DENIES ITCHING ELSEWARE. NO FLUSHING OR REDNESS SEEN ON SKIN. WORK OF BREATHING WNL. PT DENIES SHORTNESS FO BREATH. PT REPORTS 5/10 PAIN "IN THE BACK OF MY LEGS" SEE MAR FOR MEDICATION GIVEN. PT DENIES ADDITIONAL REQUESTS OR COMPLAINTS. CALL LIGHT WITHIN REACH.
--- NOTE | 2022-06-12 12:30 | NUR ---
THIS RN TO ROOM TO CHECK ON PT. PT UP TO CHAIR, RESTING WITH EYES CLOSED, LEANING TO LEFT SIDE, SUPPORTED WITH PILLOWS. RESPRIATIONS EVEN AND UNLABORED. CALL LIGHT WITHIN REACH. PT ALLOWED TO REST.
--- NOTE | 2022-06-12 13:30 | NUR ---
WENT IN ROOM FOR HOURLY ROUNDING. CHECKED ON PATIENT, PATIENT SITTING IN THE CHAIR. LOOKED AT IV SITE NO SIGN OF PHLEBITIS OR IRRATATION. PATIENT STATED SHE WAS DOING OK WITH NO COMPLAINTS. ICE WATER REFILLED. PATIENT SIITING IN CHAIR, CALL LIGHT WITH IN REACH. NO FURTHER NEEDS AT THIS TIME.
--- NOTE | 2022-06-12 13:42 | NUR ---
HOURLY ROUNDING: PT UP TO CHAIR VISITING WITH HER . PT AWAKE AND ALERT. PT REPORTS 3/10 PAIN IN BLE THAT IS WELL CONTROLLED. PT DENIES NEED FOR ADDITIONAL PAIN MEDICAITON. PT DENIES RESTROOM NEEDS. PT REMAINS UP TO CHAIR. PT TALKIGN AOBUT RECEIVING A PHONE CALL FROM SOME ONE "CLAMING TO BE MY DAUGHTER." PT REPORTS SHE HAS NEVER HEARD OF THIS PERSON. EDUCATION DONE WITH PT REGARDING SPAM CALLS. PT CONTINUES TALKING WITH HER ABOUT THIS CALL STATING "I DON'T THINK I HAD ANY MISCARAGES BUT MAYBE THIS PERSON IS MY DAUGHTER." CIVIL ESTIMATOR UPDATED. PT DENIES ADDITIONAL REQUESTS OR COMPLAINTS. CALL LIGHT WITHIN REACH.
--- NOTE | 2022-06-12 14:15 | NUR ---
SPOKE TO PATIENT AND HER ABOUT PATIENT GOING TO [facility] FOR CONTINUED WOUND CARE NEEDED AFTER INPATIENT STAY. BOTH PARTIES ARE AGREEABLE TO SNIF PLACMENT. SONYA FROM [facility] UPDATED ABOUT PATIENT'S REQUEST FOR SNIF PLACEMENT. SONYA FROM [facility] WILL HAVE HIS NURSE REVIEW REFERRAL AND LET CASE MANAGEMENT KNOW IF BED SPACE IS AVAILABLE.
--- NOTE | 2022-06-12 14:19 | NUR ---
AFTERNOON ASSESSMENT DUE. PT REMAINS UP TO CHAIR. AWAKE AND ALERT. PT OREINTED TO ALL BUT EXACT DATE. PT FORGETFUL AT TIMES AND CONFUSED AT TIMES BUT IS ABLE TO RECALL EVENTS AND REPEAT BACK EDUCATION. PT REPORTS 2/10 PAIN IN BLE AT THIS TIME. PT DENIES NEED FOR PAIN MEDICATION. SPEACH APPEAR LESS SLURRED THIS AFTERNOON. PT COMMUNICATING CLEARLY. STRENGTH EQUAL BILATERALLY. PT ABLE TO PUSH AGAINST RESISTANCE IN ARMS. PT REMAINS WEAK AND UNABLE TO LIFT LEGS STRAIGHT UP. CORBIN STEADY CONTINUES TO BE NECESSARY FOR PT TRANSFERS. LUNG SOUNDS CLEAR. HEART TONES REGULAR AND RATE NOW IN THE 70'S. 72 APICAL PULSE AT THIS TIME. PT HAS VOIDED TWICE TODAY, UNMEASURED. SUFFICIRAVEN WEBB MD AWARE. DRESSINGS TO BLE SHOW SCANT AMOUNT OF RED SHADOWING IN BACK . OTHERWISE C/D/I. CMS INTACT PT ALBE TO MOVE TOES AND IDENTIFY TOE THAT IS TOUCHED. PT ABLE TO DEMONSTRATE PLANTAR AND DORISI FLEXION. PT CONTINUES VISITING WITH HRE . NO ADDITIONAL REQUESTS OR COMPLAINTS. CALL LIGHT WITHIN REACH.
--- NOTE | 2022-06-12 15:29 | NUR ---
THIS RN TO ROOM TO CHECK ON PT. PT CONTINUES VISITING WITH HER . PT REPORTS HER BACK IS ITCHING. NO FLUSHING OR REDNESS NOTED. DRY SKIN NOTED TO BACK. LOTION APPLIED. PT REPORTS "THAT REALLY HELPS." PT DENIES PAIN AND NAUSEA. NO ADDITIONAL REQUESTS OR COMPLAINTS. CALL LIGHT WITHIN REACH.
--- NOTE | 2022-06-12 15:43 | NUR ---
PT HERE FOR HYERKALEMIA. PT UP CORBIN STEADY TO CHAIR AND RESTROOM THIS SHIFT. TOLERATING REGULAR DIET WITH MODERATE APPITITE. WARFARIN HELD RELTEAD TO INR LAB VALUE. PT REMAINS IN A-FIB RYTHEM PER BASELINE. PT FLUSHED/RED AND ITCHY OVER ENTIRE BODY THIS MORNING. BENADRYL GIVEN X1 AND ABX STOPPED. NEW ABX ORDERS PLACED. BLE DRESSINGS REMOVED THIS AM, NEW PICTURES TAKEN. NEW DRESSINGS APPLIED BY DR. JADE. WOUNDS AND SWELLING TO BLE IMPROVED. PRN NORCO GIVEN FOR BLE PAIN. PT WAS NOT GIVEN METOPROLOL OR DILTAIZEM LAST SHIFT AND WAS TACHYCARDICA THIS MORNING. MEDICATIONS GIVEN AND TIMES ADJUSTED. PT IS NOT VOIDING MONIQUE BERNAL MD AWARE. MONITORING LABS. PT DOES NOT USE CALL LIGHT OR MAKES NEEDS KNOWN. INTENTIONAL HOURLY ROUNDING FOR SAFETY
--- NOTE | 2022-06-12 16:32 | NUR ---
THIS RN TO ROOM TO CHECK ON PT. PT RESTING IN CHAIR WITH EYES CLOSED. LEANING LEFT, SUPPORTED WITH PILLOWS. CALL LIGHT WITHIN REACH. PT ALLOWED TO REST.
--- NOTE | 2022-06-12 17:33 | NUR ---
DINNER DELIVERD TO PT. PT RESTING WITH EYES CLOSED, AWAKENS TO VOICE. PT ASSISTED WITH MEAL TRAY PREP. PT HAS DIFFICULTY USING FORK, FINDS MORE SUCESS FEEDING SELF WITH A SPOON. PT EXPRESSES GREATFULNESS FOR ASSISTANCE. PT DENEIS PAIN AND NAUSEA. NO ADDITIONAL REQUESTS OR COMPLAINTS. CALL LIGHT WITHIN REACH.
--- NOTE | 2022-06-12 18:22 | NUR ---
THIS RN TO ROOM TO CHECK ON PT. PT FALLING ASLEEP FREQUENTLY WHILE EATING. PT AWOKEN X5 WITH FOOD STILL IN HER MOUTH BEFORE STATING SHE IS DONE EATING. PT ATE ~25%. PT DENIES PAIN AND NAUSEA. PT DRIFTS QUICKLY BACK TO SLEEP. LISTING TO LEFT SIDE, SUPPORTED WITH PILLOWS. NO ADDITIONAL REQUESTS OR COMPLAINTS. CALL LIGHT WITHIN REACH.
--- NOTE | 2022-06-12 23:45 | NUR ---
PT LYING IN BED RESTING QUIETLY. RESP EVEN ET UNLABORED. PT CONFUSED AT TIMES. PT GIVEN PRN PAIN MEDICATION BEFORE PM DRESSING CHANGE TO BLE. PT TOLERATED DRESSING CHANGE. NO ACUTE DISTRESS NOTED AT THIS TIME.
--- NOTE | 2022-06-13 07:44 | NUR ---
RECIEVED SHIFT REPORT. PT RESTING IN BED, AWAKE. CALL LIGHT WITHIN REACH
--- NOTE | 2022-06-13 09:00 | NUR ---
ABX ADMINISTERING AT THIS TIME.
--- NOTE | 2022-06-13 09:00 | NUR ---
PT RESTING IN BED, AWAKE. ORIENTED TO PLACE AND EVENT. WILL ASSESS LOWER EXT. WHEN REMOVING BANDAGES FOR SHOWER. PT BOWEL MOVEMENT LAST 06/10/22. NIO BOWEL MANAGEMENT ORDERED. CALL LIGHT WITHIN REACH. SITTING UP IN BED EATING BREAKFAST. DENIES PAIN. BED ALARM ON.
--- NOTE | 2022-06-13 10:07 | NUR ---
IV INFILTRATED AWARE AND OKAYD TO LEAVE IV OUT AT THIS TIME.
--- NOTE | 2022-06-13 10:30 | NUR ---
THE STUDENT NURSE AND I TRANFERED PATIENT FROM THE CHAIR TO THE SHOWER CHAIR. SHE WASHED HER HAIR AND MOST OF HER BODY. I GENTLY CLEANED HER LEGS WITH HIBACLEMS. BLOWED DRIED HER HAIR. WE GOT HER GOWN ON. STUDENT NURSE PUT LOTION ON HER. GOT HER TWO WARM BLANKETS. AFTER SHOWER PUT PATIENT BACK IN THE CHAIR. PUT A VIOLET ON THE FOOT REST OF THE CHAIR. SO NURSE COULD REWRAP HER LEGS.
--- NOTE | 2022-06-13 11:05 | NUR ---
THE PLAN OF CARE IS THE PATIENT WILL GO TO A SNIF WHEN REAY FOR DISCHARGE. WILL CONTINUE TO DISCUSS PLAN OF CARE WITH PATIENT NEEDED.
--- NOTE | 2022-06-13 12:04 | NUR ---
READDRESSED PT LEGS. PURULENT SEROSANG DRAINAGE NOTED BILAT. CLEANSED WITH HIBACLEANSE IN SHOWER. XEROFORM APPLIED TO LARGE WOUNDS, BACETRACIN APPLIED BILAT HEELS W/ 4X4 GUAZE. ABD PADS APPLIED OVER LG WOUNDS. WRAPPED IN KERLIX GUAZE AND COBAND. PT TOLERATED WELL. LEGS ELEVATED ON PILLOW. PICTURES TAKEN AND PLACED IN CHART.
--- NOTE | 2022-06-13 13:35 | NUR ---
PATIENT VISITING WITH . THE DISCHARGE PLAN HAS NOT CHANGED. PATIENT WILL BE DISCHARGED TO [facility] FOR CONTINUED CARE.
--- NOTE | 2022-06-13 14:00 | NUR ---
GOT PATIENT A HALF OF CUP OF COFFEE. WAS VISITING.
--- NOTE | 2022-06-13 15:00 | NUR ---
PT WORKING WITH PHYSICAL THERAPY
--- NOTE | 2022-06-13 15:26 | NUR ---
GOT PATIENT A WARM BLANKET AND ORDERED HER A DIET PEPSI.
--- NOTE | 2022-06-13 16:19 | NUR ---
NEW IV STARTED BY THIS RN. ABX INFUSING.
--- NOTE | 2022-06-13 17:46 | NUR ---
PT SITTING IN RECLINER, AWAKE. CALL LIGHT WITHIN REACH
--- NOTE | 2022-06-13 19:00 | NUR ---
REPORT RECEIVED FROM NICOLE SEWELL. PT RESTING IN BED WITH EYES CLOSED RR EVEN AND UNLABORED. PT RESPONDS WHEN ADDRESSED. PT REPORTS NO NEEDS AT THIS TIME. CALL LIGHT IN REACH. BED ALARM ON.
--- NOTE | 2022-06-13 21:50 | NUR ---
IN TO ADMINISTER MEDICATIONS, SEE MAR. PT TAKES PO MEDICATION WITH NO I VITALS AND I&Os COMPLETE. PT A&O TO SELF, PLACE, AND DATE. ASSESSMENT COMPLETE. LUNG SOUNDS CLEAR IN RUL AND MARVIN. CRACKLES IN RLL. DIMINISHED IN LLL. BOWEL TONES ACTIVE. HEART RHYTHM IRREGULAR. EDEMA NO BLE. SCATTERED BRUISING NOTED TO BUE. PT REPORTS NO PAIN AT THIS TIME. PT OFFERED TOILETING, PT ACCEPTS. 1PA WITH FWW FROM BED TO BSC AND BACK TO BED. REDNESS NOTED TO GROIN, PANNUS AND BUTTOCKS. BARRIER CREAM APPLIED TO BUTTOCKS. DESENEX POWDER APPLIED TO GROING AND PANNUS. DRESSINGS TO BLE C/D/I. WOUND CARE PERFORMED PER ORDERS. OLD DRESSINGS REMOVED. CLEANSED WITH HIBACLEANSE. XEROFORM TO LARGE WOUNDS. BACIETRACIN TO HEEL WOUNDS AND 4X4 APPLIED. ABD PADS TO LARGE WOUND AREAS. WRAPPEDWITH KERLIX GAUZE AND SECURED WITH COBAN. PT TOLERATED WELL. PT REPORTS NO OTHER NEEDS AT THIS TIME. CALL LIGHT IN REACH. BED ALARM ON. PT RESTING IN BED WITH RR EVEN AND UNLABORED.
--- NOTE | 2022-06-14 02:15 | NUR ---
PT SITTING UP IN BED REACHING TOWARDS LEGS. IN ROOM TO ROUND ON PT. PT STATES "I THINK I MIGHT BE SQUISHING A PUPPY, THERE IS SOMETHING BETWEEN MY LEGS." INFORMED PT SHE IS AT [facility] AND THAT THERE ARE NO PUPPIES. INFORMED PT IT IS A PILLOW UNDER HER LEGS. PT STATES "OH OKAY." PT RESTING IN BED. PT REPORTS NO OTHER NEEDS AT THIS TIME. CALL LIGHT IN REACH. BED ALARM ON.
--- NOTE | 2022-06-14 06:02 | NUR ---
IN TO ROUND ON PT. SCOTTY HALE IN WITH PT ASSISSTING WITH TOILETING. PT REPORTING PAIN 4/10 IN BLE. PT REQUESTING PRN TYLENOL. PRN TYLENOL ADMINISTERED, SEE JUL. PT TAKES PO MEDICATION WITH NO ISSUES. ASSESSMENT COMPLETE. LUNG SOUNDS CLEAR. BOWEL TONES ACTIVE. HEART RHYTHM IRREGULAR. PT A&O TO SELF. WHEN ASKED THE DATE PT STATES "May" INFORMED PT IT IS THE . SHEREEN ASKED WHAT YEAR IT IS PT STATES "2024." WHEN ASKED IF PT KNOWS WHERE SHE IS PT STATES "YES, AT YOUR HOUSE IN [facility]." ASKED PT TO TRY AGAIN PT STATES "ARE WE AT THE SCHOOL?" INFORMED PT SHE IS AT [facility]. PT STATES "OH OKAY." LAB IN TO DRAW LABS. PT REPORTS NO OTHER NEEDS AT THIS TIME. CALL LIGHT IN REACH. PT SITTING UP IN CHAIR WITH BLE ELEVATED ON PILLOW.
--- NOTE | 2022-06-14 06:25 | NUR ---
DR. JADE IN. THIS RN ASSISTED DR. JADE WITH DRESSING CHANGE. PT TOLERATED WELL. PT SITTING UP IN CHAIR. CHAIR ALARM ON. CALL LIGHT IN REACH. PT REPROTS NO OTHER NEEDS AT THIS TIME. BLE ELEVATED ON PILLOW.
--- NOTE | 2022-06-14 07:40 | NUR ---
REPORT RECEIVED FROM NIGHT RN AND PT. CARE RESUMED. PT. SITTING IN CHAIR WITH HER HEAD IN HER HANDS. SHE C/O BACK PAIN AND BURNING IN BLE. ADMIN PRN PAIN MED. ASSESSMENT COMPLETED. LEFT RESTING WITH CALL LIGHT IN REACH.
--- NOTE | 2022-06-14 11:12 | NUR ---
[facility] SCHEDULED FOR 06/14/21 @1045 AM.
--- NOTE | 2022-06-14 12:22 | NUR ---
ROUNDING ON PT. SHE IS UP IN THE CHAIR AND DENIES NEEDS AT THIS TIME.
--- NOTE | 2022-06-14 13:15 | NUR ---
ROUNDING ON PT. SHE IS IN THE BED WITH PICC NURSE PREPPING FOR PROCEDURE. SHE DENIES PAIN.
[2022-06-14] MEDS ORDERED: WARFARIN SODIUM5 MG PO (15:41)
[2022-06-14] MEDS ORDERED: HYDROCODON-ACE1 EA10 PO (15:42)
--- NOTE | 2022-06-14 16:12 | NUR ---
PT. REFUSES TO TRY TO AMBULATE TO THE COMMODE AT THIS TIME.WILL TRY AFTER DINNER. ASSESSMENT COMPLETED. LEG DRESSINGS REMAIN C.D.I. CALL LIGHT IN REACH.
--- NOTE | 2022-06-14 19:00 | NUR ---
REPORT RECEIVED FROM NICOLE CHRISTIANSON. PT RESTING IN BED SEMI-FOWLERS WITH EYES CLOSED. RR EVEN AND UNLABORED. NO NEEDS IDENTIFIED AT THIS TIME. CALL LIGHT IN REACH. BED ALARM ON.
--- NOTE | 2022-06-14 21:44 | NUR ---
IN TO ADMINISTER MEDICATIONS, SEE MAR. VITALS AND I&Os COMPLETE. PT REPROTING PAIN 4/10 IN BLE. PRN PAIN MEDICATION ADMINISTERED, SEE MAR. ASSESSMENT COMPLETE. LUNG SOUNDS CLEAR IN RUL AND MARVIN. CRACKLES IN RLL AND DIMINISHED IN LLL. BOWEL TONES ACTIVE. MIDLINE BLOOD RETURN NOTED AND FLUSHES WNL. MILDINE PULSATILE FLUSHED. RLE DRESSING SCANT AMOUNT OF SEROUSANGUENOUS DRAINAGE NOTED, OTHERWISE INTACT. LLE DRESSING C/D/I. 1PA WITH FWW FROM BED TO BSC AND BACK TO BED. PT A&O TO SELF. WHEN ASKED IF PT KNOWS WHERE SHE IS PT STATES "AT MY HOME IN [facility]." INFORMED PT SHE IS AT [facility]. PT REPORTS NO OTHER NEEDS AT THIS TIME. CALL LIGHT IN REACH. BED ALARM ON.
--- NOTE | 2022-06-14 22:25 | NUR ---
IN TO PERFORM DRESSING CHANGE PER ORDERS FOR BLE. OLD DRESSINGS REMOVED. HIBACLEANSE TO WOUNDS AND PAT DRY. XEROFORM TO LARGE WOUNDS. BACITRACIN TO HEELS, COVERED WITH 4X4 GAUZE. KERLIX TO BLE. ABD PADS PLACED. COBAN TO SECURE DRESSINGS TO BLE. DOROTHY RN IN TO ASSIST WITH DRESSING CHANGE. PT TOLERATED DRESSING CHANGE FAIRLY. BLE ELEVATED ON PILLOW. PT REPORTS NO OTHER NEEDS AT THIS TIME. CALL LIGHT IN REACH. BED ALARM ON.
--- NOTE | 2022-06-15 05:56 | NUR ---
IN TO ROUND ON PT. SCOTTY HALE ASSISTING PT TO CHAIR. PT SITTING UP IN CHAIR WITH LEGS ELEVATED REPORTING PAIN 6/10 IN BACK AND BLE. PRN PAIN MEDICATION ADMINISTERED, SEE MAR. ASSESSMENT COMPLETE. LUNG SOUNDS CLEAR. BOWEL TONES ACTIVE. BLE DRESSINGS C/D. STRAP ON HEEL OF BLE LOOSE, REINFORED WITH TAPE. NO SHADOWING NOTED TO EITHER DRESSING. CHAIR ALARM ON. PT REPORTS NO OTHER NEEDS AT THIS TIME. CALL LIGHT IN REACH.
--- NOTE | 2022-06-15 06:34 | NUR ---
COVID 19 SWAB DONE TO BOTH NARES AND SENT TO IN HOUSE LAB.
--- NOTE | 2022-06-15 07:45 | NUR ---
REPORT RECEIVED FROM NIGHT RN AND PT. CARE RESUMED. PT. IS ALERT AND ORIENTED TO ALL BUT DAY. ASSESSMENT COMPLETED. PERIPHERAL IV REMOVED BY STUDENT RN AND WNL. LAB DRAWN FROM POWERGLIDE MIDLINE. LEGS REDRESSED PER ORDER. PT. TOLERATED WELL AND WAS PREMEDICATED PRIOR. DISCUSSED DC PLAN, AND MEDS. LEFT RESTING WITH CALL LIGHT IN REACH.
--- NOTE | 2022-06-15 07:57 | NUR ---
PATIENT'S CALLLED TO INFORM THAT DAREK WILL BE GOING TO [place] AT 10:45 TODAY. MESSAGE LEFT ON ANSWERING MACHINE.
--- NOTE | 2022-06-15 10:45 | NUR ---
REPORT CALLED TO [facility].
== END 2022-06-15 10:45 | DRG 641 ==
LOC: ED 10:27 → MS 13:43
PROVIDERS: ADMIT Family Medicine; ATTEND Internal Medicine
DX: E87.5 Hyperkalemia (principal); N17.9 Acute kidney failure, unspecified; Z20.822 Contact with and (suspected) exposure to COVID-19; I48.91 Unspecified atrial fibrillation; R19.7 Diarrhea, unspecified; E03.9 Hypothyroidism, unspecified; I10 Essential (primary) hypertension; E78.00 Pure hypercholesterolemia, unspecified; B95.7 Other staphylococcus as the cause of diseases classified elsewhere; Z90.89 Acquired absence of other organs; Z98.890 Other specified postprocedural states; Z88.1 Allergy status to other antibiotic agents; Z79.01 Long term (current) use of anticoagulants; Z79.890 Hormone replacement therapy; Z79.899 Other long term (current) drug therapy; W18.39XA Other fall on same level, initial encounter; Y92.009 Unspecified place in unspecified non-institutional (private) residence as the place of occurrence of the external cause
CPT/HCPCS: 36415; 36569; 70450; 71046; 80048; 80053; 80202; 81001; 83735; 84100; 84484; 85025; 85610; 85730; 86140; 87502; 93005; 93010; 94644; 97110; 97116; 97162; 97166; 97530; 97535; A9270; C1751; C9803; J0692; J1200; J1815; J1940; J3370; J7040; J7060; U0003

== ENCOUNTER → 2022-06-27 | Emergency (ER) | payer MEDICARE, OTHER ==
[~2022-06-27] VITALS: Ht 167.6 cm; Wt 84.3 kg
[~2022-06-27] MED LIST changes: +HYDROCODON-ACE1 EA10 PO
--- OUTSIDE RECORDS SUMMARY | 2022-06-27 05:35 | XMS ---
PreManage Notification: DAREK WITT Security Customer Service Assistant Events No recent Security Events currently on file CRITERIA MET - [facility] - [facility] - 2 Visits in 30 Days CARE PROVIDERS [facility] Staff Development Educator: Foot \T\ Ankle Surgery Current PHONE: [phone] HIRAM SKY Internal Medicine Current PHONE: [phone] Wanda Garrison Nurse Practitioner: Family Current PHONE: [phone] VLADISLAV RITTER Nurse Practitioner: Family Current PHONE: Unknown JIMMY MCWILLIAMS Internal Medicine Current PHONE: [phone] GENOVEVA GARDNER Nurse Practitioner: Family Current PHONE: [phone] IVAN MCBRIDE Nurse Practitioner Current [facility] PHONE: [phone] [facility] Current PHONE: Unknown GEOFFREY ECHOLS Family Medicine Current PHONE: [phone] Rolo has no Care Guidelines for this patient. Joesph VISIT COUNT (12 MO.) 9 [facility] TOTAL 9 NOTE: Visits indicate total known visits. ED/UCC VISIT TRACKING (12 MO.) 06/27/2022 05:32 [facility] TYPE: Emergency COMPLAINT: - WEAKNESS 06/10/2022 10:27 [facility] TYPE: Emergency COMPLAINT: - FALL 04/05/2022 11:12 [facility] TYPE: Emergency COMPLAINT: - LEG PAIN 03/30/2022 03:55 [facility] TYPE: Emergency COMPLAINT: - FALL 01/25/2022 15:29 [facility] TYPE: Emergency COMPLAINT: - MULTIPLE COMPLAINTS 12/28/2021 10:36 [facility] TYPE: Emergency COMPLAINT: - FALL DIAGNOSES: - Unspecified fall, initial encounter - senior care (current) use of anticoagulants - Contusion of other part of head, initial encounter - Allergy status to other drugs, medicaments and biological substances - Unspecified atrial fibrillation 12/25/2021 02:59 [facility] TYPE: Emergency COMPLAINT: - FALL DIAGNOSES: - Allergy status to other antibiotic agents - senior care (current) use of anticoagulants - Other jail (current) drug therapy - Essential (primary) hypertension [...] (chronic) (peripheral) INPATIENT VISIT TRACKING (12 MO.) 06/10/2022 13:[address] [facility] [place] TYPE: Medical Surgical COMPLAINT: - HYPERKALEMIA DIAGNOSES: - Hyperkalemia - Hormone replacement therapy - Pure hypercholesterolemia, unspecified - Acute kidney failure, unspecified - senior care (current) use of anticoagulants - Unspecified place in unspecified non-institutional (private) residence as the place of occurrence of the external cause - Acute kidney failure, unspecified - Other specified postprocedural states - Acquired absence of other organs - Other staphylococcus as the cause of diseases classified elsewhere - Unspecified atrial fibrillation - Essential (primary) hypertension - Unspecified atrial fibrillation - Pure hypercholesterolemia, unspecified - Contact with and (suspected) exposure to COVID-19 - Hypothyroidism, unspecified - Acquired absence of other organs - Hormone replacement therapy - Hypothyroidism, unspecified - Other fall on same level, initial encounter - Allergy status to other antibiotic agents - Allergy status to other antibiotic agents - Contact with and (suspected) exposure to COVID-19 - Other jail (current) drug therapy - Diarrhea, unspecified - Essential (primary) hypertension - rodent exterminator (current) use of anticoagulants - Other specified postprocedural states - Diarrhea, unspecified - Other jail (current) drug therapy - Unspecified place in unspecified non-institutional (private) residence as the place of occurrence of the external cause - Other staphylococcus as the cause of diseases classified elsewhere - Other fall on same level, initial encounter 04/07/2022 12:53 [facility] [place] TYPE: Medical [...] of occurrence of the external cause - rodent exterminator (current) use of anticoagulants - Acute kidney failure, unspecified - Cellulitis of left lower limb - Unspecified atrial fibrillation - Contusion of eyeball and orbital tissues, left eye, initial encounter - Lymphedema, not elsewhere classified - rodent exterminator (current) use of anticoagulants - Contact with [...] - Pain in right shoulder 01/25/2022 22:[address] [facility] TYPE: Medical Surgical COMPLAINT: - ATRIAL [...] limb - Abnormal coagulation profile - Other jail (current) drug therapy - Contact with and (suspected) exposure to COVID-19 - Non-pressure chronic ulcer of left heel and midfoot with fat layer exposed - Type 2 diabetes mellitus with foot ulcer - rodent exterminator (current) use of anticoagulants - senior care (current) use of anticoagulants - Hypothyroidism, unspecified - Other jail (current) drug therapy - Other specified bacterial agents as the cause of diseases classified elsewhere - Pure hypercholesterolemia, unspecified - Non-pressure chronic ulcer of other part of left foot with fat layer exposed - Hyperkalemia - Orthostatic hypotension - Non-pressure chronic ulcer of other part of left foot with fat layer exposed 12/19/2021 16:[address] [facility] [place] TYPE: Medical Surgical COMPLAINT: - ACUTE LEFT LOWER EXTREMITY SEVERE CELLULITIS DIAGNOSES: - Pure hypercholesterolemia, unspecified - Essential (primary) hypertension - Other jail (current) drug therapy - Contact with and (suspected) exposure to COVID-19 - Other specified postprocedural states - Pure hypercholesterolemia, unspecified - rodent exterminator (current) use of antibiotics - Adverse effect of cephalosporins and other beta-lactam antibiotics, initial encounter - Cellulitis of left lower limb - Allergy, unspecified, initial encounter - Adverse effect of cephalosporins and other beta-lactam antibiotics, initial encounter - Other jail (current) drug therapy - Chronic atrial fibrillation, unspecified - Other specified postprocedural states - Hypothyroidism, unspecified - Chronic atrial fibrillation, unspecified - rodent exterminator (current) use of anticoagulants - Hypothyroidism, unspecified - Essential (primary) hypertension - Elevated white blood cell count, unspecified - senior care (current) use of anticoagulants - rodent exterminator (current) use of antibiotics - Contact with and (suspected) exposure to COVID-19 [email or web address]
--- NOTE | 2022-06-29 17:40 | EKG ---
[facility] [address] [facility] [place] [id number] Signed Junctional rhythm Low voltage QRS Nonspecific ST and T wave abnormality Prolonged QT Abnormal ECG When compared with ECG of 10-JUN-2022 11:15, Significant changes have occurred Confirmed by AILYN SHAIKH MD ([id number] on 06/29/2022 5:40:24 PM Electronically Signed By: AILYN SHAIKH MD 06/29/22 1740 PATIENT NAME: EDUARDAREK Electrocardiogram DATE OF : 36 PHYSICIAN: AILYN SHAIKH MD REPORT #: [id number] REPORT IS CONFIDENTIAL AND NOT TO BE RELEASED WITHOUT AUTHORIZATION
== END ==
LOC: ED 05:31
DX: I10 Essential (primary) hypertension (principal); I48.91 Unspecified atrial fibrillation; Z88.8 Allergy status to other drugs, medicaments and biological substances; Z79.01 Long term (current) use of anticoagulants
CPT/HCPCS: 31500; 36415; 36600; 70450; 71045; 80053; 81001; 82803; 83605; 83735; 83880; 84484; 85025; 85610; 85730; 87502; 93005; 93010; 94002; C9803; J0330; J0461; J1100; J1265; J1610; J1940; J2405; J2543; J3010; J7060; U0003